=== PATIENT | female | born 1995 | race Caucasian/White ===

== ENCOUNTER 2018-04-25 21:29 | Inpatient (IN) ==
[2018-04-25] MEDS ORDERED: 0.9 % Sodium Chloride 1,000 ML IVC ONE (22:34)
[2018-04-25] MEDS ORDERED: Ondansetron 4 MG/2 ML VIAL IVP ONE (22:34)
[2018-04-25 23:04] LABS: Basophils % 0.4 %; Eosinophils # 0.2 K/mcL (0.0-0.6); Eosinophils % 1.9 %; Hemoglobin 12.5 g/dL (11.5-15.4); Lymphocytes % 9.5 %; Mean Corpuscular HGB Conc 32.1 g/dL (31.6-35.5); Mean Corpuscular Hemoglobin 26.5 pg (28.0-33.3); Mean Corpuscular Volume 82.8 fL (83.0-100.0); Mean Platelet Volume 9.8 fL (9.4-12.4); Monocytes # 1.1 K/mcL (0.0-1.3); Monocytes % 10.6 %; Neutrophils # 8.2 K/mcL (1.6-8.9); Platelet Count 456 K/mcL (140-400); Red Blood Count 4.71 M/mcL (3.82-4.97); Red Cell Distribution Width 17.7 % (11.5-14.5); Segmented Neutrophils % 76.6 %
[2018-04-25 23:22] LABS: BUN/Creatinine Ratio 6 (6-26); Blood Urea Nitrogen 4 mg/dL (6-20); Calcium 8.3 mg/dL (8.6-10.3); Carbon Dioxide 28 mEq/L (23-29); Chloride 98 mEq/L (98-107); Glucose 169 mg/dL (70-105); Osmolality,Calculated 285 (280-300); Potassium 2.9 mEq/L (3.5-5.1); Sodium 137 mEq/L (136-145); eGFR For Non-African Americans > 60 (> 60)
[2018-04-25] MEDS ORDERED: Potassium Chloride Elixir 20 MEQ/15 ML UDC PO ONE (23:32)
[2018-04-26 00:04] LABS: Bilirubin,Urine Small (Negative); Blood,Urine Moderate (Negative); Clarity,Urine Cloudy (Clear); Color,Urine Dark Yellow (Yellow); Glucose,Urine (UA) Normal (Normal); Ketones,Urine 80 mg/dL (Negative); Leukocyte Esterase,Urine Small (Negative); Nitrite,Urine Negative (Negative); Protein,Urine 100 mg/dL (Neg-Trace); Specific Gravity,Urine 1.015 (1.010-1.025); Urobilinogen,Urine Normal (Normal)
[2018-04-26 00:27] LABS: Bacteria,Urine Few per hpf (None-Few); Squamous Epithelial Cell,Urine Many per lpf (None-Few)
[2018-04-26] MEDS ORDERED: 0.9 % Sodium Chloride 1,000 ML IVC ONE (00:34)
[2018-04-26] MEDS ORDERED: Metoclopramide 10 MG/2 ML VIAL IVP ONE (00:46)
--- NOTE | 2018-04-26 00:59 | Emergency Department Note ---
Disposition Clinical Impression: New onset type 2 diabetes mellitus Nausea and vomiting Qualifiers: Vomiting type: unspecified Vomiting Intractability: intractable Qualified Code(s): R11.2 - Nausea with vomiting, unspecified Disposition: Admitted As Inpatient Condition: Fair Time of Disposition: 00:56 General Adult HPI - General Chief complaint: ED Nausea/Vomiting/Diarrhea Stated complaint: vomiting/diabetic issues Time Seen by Provider: 04/25/18 22:05 Source: patient, family Mode of arrival: ambulatory Limitations: no limitations Nursing Notes Reviewed: Yes Vital Signs Reviewed: Yes - History of Present Illness HPI Narrative: Patient is a 23-year-old female past medical history of prediabetes and hypertension presents immersed department for intractable nausea and vomiting has been going on for the past 4 weeks. The patient states that she has been 2 [facility] ED multiple times without any answers or care for her nausea and vomiting. She states that she saw family doctor for the first time today in which she had labs drawn they called her dad's girlfriend and told her that she needs to come to the hospital due to her labs. I spoke with dad's girlfriend, back, and she states that the patient needed to come in due to her A1c in her intractable nausea and vomiting. She denies any abdominal pain at this time states that occasionally before vomiting she gets like an epigastric pain that occurs before and after. No fevers. States that she has not been able to fe erate any food by mouth for the past 4 weeks. Pain Scale: 9 - Related Data Allergies Allergy/AdvReac Type Severity Reaction Status Date / Time No Known Allergies Allergy Verified 04/25/18 22:02 All systems ED: reviewed and negative except as stated. Review of Systems: As Per HPI Constitutional: Denies: fever, chills Cardiovascular: Denies: chest pain, palpitations, dyspnea on exertion Respiratory: Denies: cough, dyspnea, wheezes Gastrointestinal: Reports: abdominal pain, nausea, vomiting, diarrhea Genitourinary: Denies: urgency, dysuria, frequency Musculoskeletal: Denies: back pain, neck pain Integumentary: Denies: rash Past Medical History - Past Medical History Attestation: Yes The following information was validated with the patient. Medical history: Reports: diabetes, hypertension Psychiatric history: Reports: no psych history - Social History Smoking Status: Never smoker Smokeless Tobacco Status: No Alcohol use: Reports: none Drug use: Reports: none Physical Exam - General Limitations: no limitations General appearance: alert, in no apparent distress - Head Head exam: atraumatic, normocephalic, normal inspection - Eye Eye exam: Present: normal appearance, PERRL, EOMI - ENT ENT exam: normal exam, normal oropharynx, mucous membranes dry - Neck Neck exam: Present: normal inspection, full ROM, trachea midline - Respiratory Respiratory exam: Present: normal lung sounds bilaterally. Absent: respiratory distress - Cardiovascular Cardiovascular exam: Present: regular rate, normal rhythm, normal heart sounds - Abdominal Exam Abdominal exam: Present: soft, Non-Tender. Absent: tenderness, distention, guarding, rebound, rigidity - Extremities Exam Extremities exam: Present: normal inspection, full ROM. Absent: tenderness, pedal edema - Back Exam Back exam: Present: normal inspection, full ROM. Absent: tenderness - Neurological Exam Neurological exam: Present: alert, oriented X3 - Psychiatric Psychiatric exam: Present: normal affect, normal mood - Skin Skin exam: Present: warm, dry, intact, normal color Course Course Narrative: Patient will undergo evaluation for dehydration we will also evaluate a chem panel to check electrolytes and glucose. Upon review of her labs earlier today she does have microcytic blood cells, hypokalemia, hypocalcemia and hypoalbuminemia. These are concerning for possible it malnutrition secondary to intractable nausea and vomiting. She also has medications with her which include Phenergan, [place], Flagyl and Lasix. She will receive IV fluid hydration as well as treatment of Zofran. She also complains of dizziness associates this with her first dose of Phenergan. She will receive meclizine. We will then reassess. She is tachycardic in the 120s which I suspect is due to dehydration given her dry mucous membranes. - Reevaluation(s) Reevaluation #1: Patient's lab work is unchanged from labwork done this morning except for potassium is lower. There is confusion between her and her mother as to whether she took her potassium pills this morning so I am concern for noncompliance with medications. Her urine shows signs of dehydration and is very dark in appearance and she does have ketones present but no infection. We will replace her potassium she will receive a second liter of IV fluids. She failed a by mouth challenge after Zofran. She received metoclopramide we will get the patient to the hospital for intractable nausea and vomiting. I discussed the patient's case with Dr. Coleman and he agrees to accept. Time: 01:02 Vital Signs Temperature 98.1 F 04/25/18 21:59 Pulse Rate 125 04/25/18 21:59 Respiratory Rate 16 04/25/18 21:59 Blood Pressure 136/95 04/25/18 21:59 O2 Sat by Pulse Oximetry 96 04/25/18 21:59 Temperature 98.1 F 04/25/18 21:59 Pulse Rate 109 04/26/18 00:30 Respiratory Rate 18 04/26/18 00:30 Blood Pressure 158/84 04/26/18 00:30 O2 Sat by Pulse Oximetry 100 04/26/18 00:30 Oxygen Delivery Oxygen Delivery Room Air Medical Decision Making - Medical Records Medical records reviewed: Yes I reviewed the patient's medical records. - Lab Data Lab results reviewed: Yes I reviewed the patient's lab results. Result diagrams: 04/25/18 22:22 04/25/18 22:22 Lab Results 04/25/18 04/25/18 04/25/18 Range/Units 22:22 22:22 23:48 WBC 10.7 (4.3-11.1) K/mcL RBC 4.71 (3.82-4.97) M/mcL Hgb 12.5 (11.5-15.4) g/dL Hct 39.0 (35.3-44.9) % MCV 82.8 L (83.0-100.0) fL MCH 26.5 L (28.0-33.3) pg MCHC 32.1 (31.6-35.5) g/dL RDW 17.7 H (11.5-14.5) % Plt Count 456 H (140-400) K/mcL MPV 9.8 (9.4-12.4) fL Immature Gran % 1.0 (0-4) % Seg Neutrophils % 76.6 % Lymphocytes % 9.5 % Monocytes % 10.6 % Eosinophils % 1.9 % Basophils % 0.4 % Neutrophils # 8.2 (1.6-8.9) K/mcL Lymphocytes # 1.0 (0.6-4.6) K/mcL Monocytes # 1.1 (0.0-1.3) K/mcL Eosinophils # 0.2 (0.0-0.6) K/mcL Basophils # 0.0 (0.0-0.2) K/mcL Sodium 137 (136-145) mEq/L Potassium 2.9 L (3.5-5.1) mEq/L Chloride 98 (98-107) mEq/L Carbon Dioxide 28 (23-29) mEq/L BUN 4 L (6-20) mg/dL Creatinine 0.71 (0.60-1.20) mg/dL Est GFR ( Amer) > 60 (> 60) Est GFR (Non-Af Amer) > 60 (> 60) BUN/Creatinine Ratio 6 (6-26) Glucose 169 H (70-105) mg/dL Calculated Osmolality 285 (280-300) Calcium 8.3 L (8.6-10.3) mg/dL Urine Color Dark Yellow (Yellow) Urine Clarity Cloudy A (Clear) Urine pH 6.0 (5.0-8.0) pH Units Ur Specific [place] 1.015 (1.010-1.025) Urine Protein 100 H (Neg-Trace) mg/dL Urine Glucose (UA) Normal (Normal) mg/dL Urine Ketones 80 H (Negative) mg/dL Urine Blood Moderate H (Negative) Urine Nitrite Negative (Negative) Urine Bilirubin Small H (Negative) Urine Urobilinogen Normal (Normal) mg/dL Ur Leukocyte Esterase Small H (Negative) Urine Microscopic RBC 3-5 H (0-3) per hpf Urine Microscopic WBC 5-15 H (0-3) per hpf Ur Squamous Epith Cells Many H (None-Few) per lpf Urine Bacteria Few (None-Few) per hpf Ur Culture Indicated? NO. A (NO)
[2018-04-26] MEDS ORDERED: Potassium Chloride 40 MEQ, Lidocaine 1% 2 ML in D5% in Water 500 ML IVPB ONE (01:02)
[2018-04-26] MEDS ORDERED: *HR* Promethazine 25 MG/ML VIAL IVP PRN (01:26)
[2018-04-26] MEDS ORDERED: 0.9 % Sodium Chloride w KCl 40 MEQ/1,000 ML MLS IVC SCH (01:30)
--- NOTE | 2018-04-26 01:57 | Emergency Department Note ---
Disposition Clinical Impression: New onset type 2 diabetes mellitus Nausea and vomiting Qualifiers: Vomiting type: unspecified Vomiting Intractability: intractable Qualified Code(s): R11.2 - Nausea with vomiting, unspecified Disposition: Admitted As Inpatient Condition: Fair General Adult HPI - General Chief complaint: ED Nausea/Vomiting/Diarrhea Stated complaint: vomiting/diabetic issues Time Seen by Provider: 04/25/18 22:05 Source: patient, family Mode of arrival: ambulatory Limitations: no limitations Nursing Notes Reviewed: Yes Vital Signs Reviewed: Yes - History of Present Illness Pain Scale: 9 - Related Data Allergies Allergy/AdvReac Type Severity Reaction Status Date / Time No Known Allergies Allergy Verified 04/25/18 22:02 Constitutional: Denies: fever, chills Cardiovascular: Denies: chest pain, palpitations, dyspnea on exertion Respiratory: Denies: cough, dyspnea, wheezes Gastrointestinal: Reports: abdominal pain, nausea, vomiting, diarrhea Genitourinary: Denies: urgency, dysuria, frequency Musculoskeletal: Denies: back pain, neck pain Integumentary: Denies: rash Past Medical History - Past Medical History Medical history: Reports: diabetes, hypertension Psychiatric history: Reports: no psych history - Social History Smoking Status: Never smoker Smokeless Tobacco Status: No Alcohol use: Reports: none Drug use: Reports: none Physical Exam - General Limitations: no limitations General appearance: alert, in no apparent distress Course Vital Signs Temperature 98.1 F 04/25/18 21:59 Pulse Rate 125 04/25/18 21:59 Respiratory Rate 16 04/25/18 21:59 Blood Pressure 136/95 04/25/18 21:59 O2 Sat by Pulse Oximetry 96 04/25/18 21:59 Temperature 98.1 F 04/25/18 21:59 Pulse Rate 109 04/26/18 00:30 Respiratory Rate 18 04/26/18 00:30 Blood Pressure 158/84 04/26/18 00:30 O2 Sat by Pulse Oximetry 100 04/26/18 00:30 Oxygen Delivery Oxygen Delivery Room Air Medical Decision Making - Medical Records Medical records reviewed: Yes I reviewed the patient's medical records. - Lab Data Lab results reviewed: Yes I reviewed the patient's lab results. Result diagrams: 04/25/18 22:22 04/25/18 22:22 Lab Results 04/25/18 04/25/18 04/25/18 Range/Units 22:22 22:22 23:48 WBC 10.7 (4.3-11.1) K/mcL RBC 4.71 (3.82-4.97) M/mcL Hgb 12.5 (11.5-15.4) g/dL Hct 39.0 (35.3-44.9) % MCV 82.8 L (83.0-100.0) fL MCH 26.5 L (28.0-33.3) pg MCHC 32.1 (31.6-35.5) g/dL RDW 17.7 H (11.5-14.5) % Plt Count 456 H (140-400) K/mcL MPV 9.8 (9.4-12.4) fL Immature Gran % 1.0 (0-4) % Seg Neutrophils % 76.6 % Lymphocytes % 9.5 % Monocytes % 10.6 % Eosinophils % 1.9 % Basophils % 0.4 % Neutrophils # 8.2 (1.6-8.9) K/mcL Lymphocytes # 1.0 (0.6-4.6) K/mcL Monocytes # 1.1 (0.0-1.3) K/mcL Eosinophils # 0.2 (0.0-0.6) K/mcL Basophils # 0.0 (0.0-0.2) K/mcL Sodium 137 (136-145) mEq/L Potassium 2.9 L (3.5-5.1) mEq/L Chloride 98 (98-107) mEq/L Carbon Dioxide 28 (23-29) mEq/L BUN 4 L (6-20) mg/dL Creatinine 0.71 (0.60-1.20) mg/dL Est GFR ( Amer) > 60 (> 60) Est GFR (Non-Af Amer) > 60 (> 60) BUN/Creatinine Ratio 6 (6-26) Glucose 169 H (70-105) mg/dL Calculated Osmolality 285 (280-300) Calcium 8.3 L (8.6-10.3) mg/dL Urine Color Dark Yellow (Yellow) Urine Clarity Cloudy A (Clear) Urine pH 6.0 (5.0-8.0) pH Units Ur Specific [place] 1.015 (1.010-1.025) Urine Protein 100 H (Neg-Trace) mg/dL Urine Glucose (UA) Normal (Normal) mg/dL Urine Ketones 80 H (Negative) mg/dL Urine Blood Moderate H (Negative) Urine Nitrite Negative (Negative) Urine Bilirubin Small H (Negative) Urine Urobilinogen Normal (Normal) mg/dL Ur Leukocyte Esterase Small H (Negative) Urine Microscopic RBC 3-5 H (0-3) per hpf Urine Microscopic WBC 5-15 H (0-3) per hpf Ur Squamous Epith Cells Many H (None-Few) per lpf Urine Bacteria Few (None-Few) per hpf Ur Culture Indicated? NO. A (NO) Attestation Statement - Attestation Attestation: I, Gregor Johnson MD, personally evaluated this patient and discussed their management with the resident physician. I reviewed the resident's note and agree with the documented findings, medical decision making, and plan of care. 23-year-old female persisted emergency department with a complaint of nausea and vomiting for about a month prior to arrival. She states every time she eats anything she gets sick and vomits and cannot keep anything down. Symptoms have gotten progressively worse. She has apparently been seen at another facility multiple times for this. Some intermittent abdominal pain which seems to vary in location. No fever. No GI bleed symptoms. Patient has been told that she was prediabetic. She was seen earlier today by a primary care nurse practitioner. She had lab work and then was called at home this evening and advised she needed to come to the emergency department to be admitted to the hospital for diabetes. On examination patient is a well-developed obese young female in no acute distress. She is alert and oriented 3. No cyanosis or diaphoresis. Mucous membranes are slightly dry. Neck is supple with no lymphadenopathy. Breath sounds clear and equal bilaterally. Heart regular with a mild tachycardia. Abdomen is soft with normal bowel sounds. Mild mid abdominal tenderness with no guarding or rebound tenderness. Labs reviewed. Patient was given a dose of oral potassium for her hypokalemia but then vomited it back up. She also was given an oral challenge and vomited. The hospitalist, Dr. Schultz, was consulted and accepted admission of the patient.
--- NOTE | 2018-04-26 02:17 | Internal Med History&Physical ---
Date of Encounter: 04/26/18 Time of Encounter: 02:14 Internal Medicine - H&P: HPI Chief complaint: vomiting Admitted From: Home Plans for Post Hospital Care: Home History of present illness: Lauren Motta is a 23 year old obese female who has been diagnosed with high blood pressure and seemingly recently was told she may have diabetes who is brought in by a female bacon de rinder with the complaint of 1 month of nausea, vomiting and watery diarrhea. She has been to [place] ER on 2 occasions because of this issue. She comes in now because she has significantly worsened, has been unable to tolerate PO, has some abdominal pain but no fever or chills. Labs revealed a serum K of 2.9. She is admitted for observation and treatment. Past Med Surg Social Fam HX - Past Medical History Medical history: diabetes, hypertension Psychiatric history: no psych history - Social History Smoking Status: Never smoker Smokeless Tobacco Status: No Alcohol use: none Drug use: none Internal Medicine - H&P: Meds Allergy/AdvReac Type Severity Reaction Status Date / Time No Known Allergies Allergy Verified 04/25/18 22:02 All Systems PM: A 10-system review of systems was performed and is negative for pertinent findings except as documented above in the HPI. Family history reviewed and found non-contributory. - Constitutional Vitals: Temp Pulse Resp BP Pulse Ox 98.1 F 109 18 158/84 100 04/25/18 21:59 04/26/18 00:30 04/26/18 00:30 04/26/18 00:30 04/26/18 00:30 Exam: Vitals: Reviewed General: Obese white female lying in bed, notably fatigued. Skin: Warm and supple. HEENT: Moist mucous membranes. No conjunctivae pallor. Neck: No lymphadenopathy. No JVD. No carotid bruits. No palpable thyroid. Chest: Normal thoracic expansion. Normal breath sounds. Clear to auscultation. Heart: Normal S1 & S2; rhythmic. No rubs or murmurs. Abdomen: Non-distended, soft and mild tenderness to palpation in the right flank. No peritoneal reaction. Extremities: No clubbing, cyanosis or edema. No calf tenderness. Normal distal pulses. Neurological: Awake, alert and oriented to person, place and time. No focal defi cits. Psych: Affect appropriate. Internal Med - H&P Results - Labs CBC & Chem 7: 01/30/19 22:22 04/25/18 22:22 Labs: Short CBC 04/25/18 Range/Units 22:22 WBC 10.7 (4.3-11.1) K/mcL Hgb 12.5 (11.5-15.4) g/dL Hct 39.0 (35.3-44.9) % Plt Count 456 H (140-400) K/mcL Neutrophils # 8.2 (1.6-8.9) K/mcL BMP 04/25/18 22:22 Sodium 137 Potassium 2.9 L Chloride 98 Carbon Dioxide 28 BUN 4 L Creatinine 0.71 Glucose 169 H Calcium 8.3 L Urine 04/25/18 Range/Units 23:48 Urine Color Dark Yellow (Yellow) Urine Clarity Cloudy A (Clear) Urine pH 6.0 (5.0-8.0) pH Units Ur Specific [place] 1.015 (1.010-1.025) Urine Protein 100 H (Neg-Trace) mg/dL Urine Glucose (UA) Normal (Normal) mg/dL - Assessment and plan (1) Nausea and vomiting Current Visit: Yes Status: Acute Assessment and plan: Unclear etiology. It is a persistent issue based on timeline and has led to her current hypokalemic state. The fact that she has associated diarrhea gives concern for an infectious process that may be at play and given its persistence, will send a GI panel for evaluation. In the interim, will provide symptomatic relief measures and fluid resuscitation. Clear liquid diet for now and advance as tolerated. If symptoms continue or worsen overnight, will get a CT scan for more evaluation. Qualifiers: Vomiting type: unspecified Vomiting Intractability: intractable Qualified Code(s): R11.2 - Nausea with vomiting, unspecified (2) Essential hypertension Current Visit: Yes Status: Acute Assessment and plan: Does not appear to be on any medications at the moment. Will monitor BP trend. Will require f/u and monitoring by PCP. (3) Obesity Current Visit: Yes Status: Acute Assessment and plan: She will benefit from weight loss. Therapeutic lifestyle changes education was given. Will check a TSH, lipid panel and A1C for associated comorbidities. Qualifiers: Obesity type: due to excess calories Obesity classification: adult class 3 (BMI >= 40) Serious obesity comorbidity presence: with serious comorbidity Body mass index: BMI 45.0-49.9 Qualified Code(s): E66.01 - Morbid (severe) obesity due to excess calories; Z68.42 - Body mass index (BMI) 45.0-49.9, adult (4) New onset type 2 diabetes mellitus Current Visit: Yes Status: Acute Assessment and plan: Will check a fasting A1C in the morning. If confirmed, she will need to f/u with PCP for initiation and follow up of therapy. Diabetic nurse education will also need to be provided. (5) DVT prophylaxis Current Visit: Yes Status: Acute Assessment and plan: SubQ heparin. - Time Spent With Patient Total time spent is greater than 50% in coordination of care (as documented) at patient's floor/unit and/or counseling patient: Greater than 35 minutes
[2018-04-26] MEDS: *HR* Heparin 5,000 UNIT/ML VIAL SQ SCH ×2 (05:31→18:08)
[2018-04-26 06:18] LABS: Alanine Aminotransferase 9 Units/L (7-52); Albumin 2.3 g/dL (3.5-5.7); Albumin/Globulin Ratio 0.6 (1.1-2.2); Alkaline Phosphatase 61 Units/L (34-104); Aspartate Amino Transferase 11 Units/L (13-39); BUN/Creatinine Ratio 6 (6-26); Bilirubin,Direct 0.1 mg/dL (0.0-0.2); Bilirubin,Indirect 0.2 mg/dL (0.0-1.2); Bilirubin,Total 0.3 mg/dL (0.3-1.0); Blood Urea Nitrogen 4 mg/dL (6-20); Calcium 7.7 mg/dL (8.6-10.3); Carbon Dioxide 24 mEq/L (23-29); Chloride 104 mEq/L (98-107); Chol/HDL Ratio 2.8 (0-4.9); Cholesterol 44 mg/dL (< 200); Globulin 3.7 g/dL (2.4-3.5); Glucose 167 mg/dL (70-105); HDL Cholesterol 16 mg/dL (40-59); LDL Cholesterol,Calculated 17 mg/dL (0-99); Osmolality,Calculated 287 (280-300); Potassium 3.4 mEq/L (3.5-5.1); Sodium 138 mEq/L (136-145); Triglycerides 57 mg/dL (< 150); eGFR For Non-African Americans > 60 (> 60)
[2018-04-26 06:38] LABS: Thyroid Stimulating Hormone 1.319 mcIU/mL (0.340-5.600)
[2018-04-26] MEDS: Pantoprazole 40 MG VIAL IVP SCH (08:18)
[2018-04-26] MEDS: 0.9 % Sodium Chloride w KCl 40 MEQ/1,000 ML MLS IVC SCH ×2 (08:19→18:05)
[2018-04-26 08:45] LABS: Estimated Average Glucose 214 mg/dl; Hemoglobin A1C 9.1 %
[2018-04-26 11:33] LABS: Adenovirus F 40/41 PCR Not detected (Not detect); Astrovirus PCR Not detected (Not detect); C.difficile Toxin A/B Gene PCR Not detected (Not detect); Campylobacter by PCR Not detected (Not detect); Cryptosporidium by PCR Not detected (Not detect); Cyclospora cayetanensis PCR Not detected (Not detect); E. coli O157 by PCR Not detected (Not detect); Entamoeba histolytica PCR Not detected (Not detect); Enteroaggregative E.coli(EAEC) DETECTED (Not detect); Enteropathogenic E.coli(EPEC) Not detected (Not detect); Enterotoxigenic E.coli (ETEC) Not detected (Not detect); Giardia lamblia PCR Not detected (Not detect); Norovirus GI/GII PCR Not detected (Not detect); Plesiomonas shigelloides PCR Not detected (Not detect); Rotavirus A PCR Not detected (Not detect); Salmonella PCR Not detected (Not detect); Sapovirus PCR Not detected (Not detect); Shig/EnteroinvasiveE coli EIEC Not detected (Not detect); Shigalike tox-prod E coli STEC Not detected (Not detect); Vibrio PCR Not detected (Not detect); Vibrio cholerae PCR Not detected (Not detect); Yersinia enterocolitica PCR Not detected (Not detect)
--- NOTE | 2018-04-26 11:37 | Event Note ---
Date of Encounter: 04/26/18 Time of Encounter: 11:37 Patient was seen and examined earlier this morning by Hospital services. Currently patient complains of right upper quadrant pain she does have some tenderness on palpation. Continues to experience diarrhea no nausea or vomiting at this time. We will order a full liquid diet attempt to obtain previous medical records. Discussed treatment plan with the patient who verbalized understanding.
[2018-04-26] MEDS: Ondansetron 4 MG/2 ML VIAL IVP PRN (18:05)
--- NOTE | 2018-04-27 02:14 | Event Note ---
Date of Encounter: 04/27/18 Time of Encounter: 01:30 Alerted by pts. nurse EZEQUIEL Rowland that the pt. was reporting pain in her vaginal area. Previously, pt. was experiencing pain in the RUQ. Pt. denies buring, itching, painful urination, urinary urgency, or urinary hesitancy. Denies suprapubic pain. States she had similar pain in 2017 when she had a yeast infection. No discharge. U/A not indicative for culture so suspicion for UTI is low. Pt. is positive for EAEC in stool. Will wait on treatment of Diflucan and begin Culturelle to see if symptoms improve. Nurse instructed to continue monitoring pt. and notify me immediately of any adverse changes.
[2018-04-27] MEDS: Lactobacillus 1 EACH CAP.SPRINK PO SCH ×2 (02:35→09:27)
[2018-04-27] MEDS: *HR* Heparin 5,000 UNIT/ML VIAL SQ SCH ×2 (05:49→18:10)
[2018-04-27] MEDS: Ondansetron 4 MG/2 ML VIAL IVP PRN (09:26)
[2018-04-27] MEDS: Pantoprazole 40 MG VIAL IVP SCH (09:26)
[2018-04-27 09:45] LABS: Basophils # 0.1 K/mcL (0.0-0.2); Basophils % 0.9 %; Eosinophils # 0.5 K/mcL (0.0-0.6); Eosinophils % 6.9 %; Hematocrit 36.8 % (35.3-44.9); Hemoglobin 11.8 g/dL (11.5-15.4); Immature Granulocytes % 1.5 % (0-4); Lymphocytes # 1.7 K/mcL (0.6-4.6); Mean Corpuscular HGB Conc 32.1 g/dL (31.6-35.5); Mean Corpuscular Hemoglobin 26.8 pg (28.0-33.3); Mean Corpuscular Volume 83.4 fL (83.0-100.0); Mean Platelet Volume 9.9 fL (9.4-12.4); Monocytes % 13.4 %; Neutrophils # 4.3 K/mcL (1.6-8.9); Platelet Count 428 K/mcL (140-400); Red Blood Count 4.41 M/mcL (3.82-4.97); Red Cell Distribution Width 18.9 % (11.5-14.5); Segmented Neutrophils % 55.3 %
[2018-04-27 09:59] LABS: BUN/Creatinine Ratio 5 (6-26); Blood Urea Nitrogen 3 mg/dL (6-20); Calcium 8.3 mg/dL (8.6-10.3); Carbon Dioxide 25 mEq/L (23-29); Chloride 105 mEq/L (98-107); Glucose 121 mg/dL (70-105); Osmolality,Calculated 282 (280-300); Potassium 3.4 mEq/L (3.5-5.1); Sodium 137 mEq/L (136-145); eGFR For Non-African Americans > 60 (> 60)
--- NOTE | 2018-04-27 13:37 | Internal Med Progress Note ---
Hospitalist Progress Note - Encounter Date of Encounter: 04/27/18 Time of Encounter: 11:00 - Subjective Interval History: Patient was seen and examined at bedside. Currently patient denies any abdominal pain has been tolerating a full liquid diet. Patient's caregiver is at the bedside-we did discuss treatment plan. Patient has been complaining of pain and panis area as well as sanket/pubic area-she does have excoriated skin to abdominal folds as well as sanket area extending into anal area. She does have P size lesion that is open and draining clear fluid on her pubic area. Caregiver states that patient has been like this once before and required hospitalization and IV antibiotics. - Exam Vitals: Temp Pulse Resp BP Pulse Ox 98.2 F 99 17 144/88 92 04/27/18 11:28 04/27/18 11:28 04/27/18 11:28 04/27/18 11:28 04/27/18 11:28 Exam: Vitals: Reviewed General: Obese white female lying in bed, notably fatigued. Skin: Warm and supple.-Open small lesions approximate pea-sized on pubic area right abdomen and under right axilla area. Excoriated skin covering skinfolds as well as pubic and groin area extending into the rectal area HEENT: Moist mucous membranes. No conjunctivae pallor. Neck: No lymphadenopathy. No JVD. No carotid bruits. No palpable thyroid. Chest: Normal thoracic expansion. Normal breath sounds. Clear to auscultation. Heart: Normal S1 & S2; rhythmic. No rubs or murmurs. Abdomen: Non-distended, soft and mild tenderness to palpation in the right flank. No peritoneal reaction. Extremities: No clubbing, cyanosis or edema. No calf tenderness. Normal distal pulses. Neurological: Awake, alert and oriented to person, place and time. No focal deficits. Psych: Affect appropriate. - Assessment and Plan (1) Nausea and vomiting Current Visit: Yes Status: Acute Assessment and Plan: Unclear etiology. It is a persistent issue based on timeline and has led to her current hypokalemic state. The fact that she has associated diarrhea gives concern for an infectious process that may be at play and given its persistence, will send a GI panel for evaluation. In the interim, will provide symptomatic relief measures and fluid resuscitation. Clear liquid diet for now and advance as tolerated. If symptoms continue or worsen overnight, will get a CT scan for more evaluation. 2/1 This has been improving patient is tolerating full liquid diet GI panel does show- Enteroaggregative E. Coli I did receive CT results from [facility] which does show diffuse colonic wall thickening mild pericolonic inflammation particularly along the descending and sigmoid colon. A number of small reactive mesenteric lymph nodes are present findings suggest diffuse colitis. No further acute processes identified at the abdomen or pelvis. There is noted profound of diffuse hepatic steatosis and secondary hepatomegaly. There appeared to be several exophytic cyst the left ovary. The largest measures up to 6 cm. There is no associated free fluid. According to records appears patient was given IV Flagyl and then discharged home with Phenergan advised to take Benadryl advised to follow-up with GI. We will continue with Flagyl for now We will repeat CT of abdomen and pelvis if no improvement. (2) New onset type 2 diabetes mellitus Current Visit: Yes Status: Acute Assessment and Plan: Will check a fasting A1C in the morning. If confirmed, she will need to f/u with PCP for initiation and follow up of therapy. Diabetic nurse education will also need to be provided. 2/1 Patient will require diabetic education prior to discharge and will require close follow-up. Discussed with social and political studies professor patient will need home health as well. We will place on sliding scale insulin and Accu-Cheks before meals at bedtime A1c is 9.1 (3) Essential hypertension Current Visit: Yes Status: Acute Assessment and Plan: Does not appear to be on any medications at the moment. Will monitor BP trend. Will require f/u and monitoring by PCP. 2/1 Currently appears to be controlled continue with home medications (4) Obesity Current Visit: Yes Status: Acute Assessment and Plan: She will benefit from weight loss. Therapeutic lifestyle changes education was given. Will check a TSH, lipid panel and A1C for associated comorbidities. 2/1 Encourage weight loss and lifestyle changes (5) DVT prophylaxis Current Visit: Yes Status: Acute Assessment and Plan: SubQ heparin. (6) Diarrhea Current Visit: Yes Status: Acute Assessment and Plan: 1 patient has been experiencing diarrhea for approximately a month CT of abdomen and pelvis obtained outlying facility on 04/24- show diffuse colonic wall thickening mild pericolonic inflammation particularly along the descending and sigmoid colon. A number of small reactive mesenteric lymph nodes are present findings suggest diffuse colitis. No further acute processes identified at the abdomen or pelvis. There is noted profound of diffuse hepatic steatosis and secondary hepatomegaly. There appeared to be several exophytic cyst the left ovary. The largest measures up to 6 cm. There is no associated free fluid. She was given IV Flagyl and discharged home. Will resume Flagyl this time if no improvement we will repeat CT of abdomen and pelvis GI panel positive- enteroaggregative E coli (7) Skin abnormalities Current Visit: Yes Status: Acute Assessment and Plan: 1 she has redness and excoriation to skin folds and an pubic and rectal area- appears to be fungal -advised nursing to keep areas clean and dry-no skin to skin contact Nystatin powder Patient also has small lesions some are open and weeping-we will obtain wound cultures-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 we will initiate on vancomycin and cefepime Patient has poor hygiene-caregiver reports that patient attempts to take care of herself however have some difficulty-appears she has some cognitive delay social and political studies professor has been consulted for home health services - Time Spent with Patient Total time spent is greater than 50% in coordination of care (as documented) at patient's floor/unit and/or counseling patient: Internal Medicine: Result - Labs CBC & Chem 7: 04/27/18 09:23 04/27/18 09:23 Labs: Short CBC 04/27/18 Range/Units 09:23 WBC 7.8 (4.3-11.1) K/mcL Hgb 11.8 (11.5-15.4) g/dL Hct 36.8 (35.3-44.9) % Plt Count 428 H (140-400) K/mcL Neutrophils # 4.3 (1.6-8.9) K/mcL BMP 04/27/18 09:23 Sodium 137 Potassium 3.4 L Chloride 105 Carbon Dioxide 25 BUN 3 L Creatinine 0.63 Glucose 121 H Calcium 8.3 L Consult Discharge Plan - Plan Additional Instructions: [facility] has been set up and will call you within 48 hours after D/C to set up an admission date and time. If you need to contact them please call #[phone] or #[phone]. Referrals: Luna Lomax, COIN WRAPPING MACHINE OPERATOR [Advanced Practice Nurse] - 05/01/18 2:30 pm (1) Nausea and vomiting Qualifiers: Vomiting type: unspecified Vomiting Intractability: intractable Qualified Code(s): R11.2 - Nausea with vomiting, unspecified (4) Obesity Qualifiers: Obesity type: due to excess calories Obesity classification: adult class 3 (BMI >= 40) Serious obesity comorbidity presence: with serious comorbidity Body mass index: BMI 45.0-49.9 Qualified Code(s): E66.01 - Morbid (severe) obesity due to excess calories; Z68.42 - Body mass index (BMI) 45.0-49.9, adult (6) Diarrhea Qualifiers: Diarrhea type: unspecified type Qualified Code(s): R19.7 - Diarrhea, unsp ecified
[2018-04-27] MEDS ORDERED: Fluconazole 200 MG/100 ML 200 MG/100 ML BAG IVPB SCH (14:00)
[2018-04-27] MEDS: Nystatin POWDER 30 GM BOTTLE TP SCH ×2 (15:56→21:07)
[2018-04-27] MEDS ORDERED: MetroNIDAZOLE 500 MG/100 ML 500 MG/100 ML BAG IVPB SCH (16:00)
[2018-04-27] MEDS: Cefepime HCl 2,000 MG in Water for inj. (sterile) 20 ML 20 ML IVP SCH (18:10)
[2018-04-28] MEDS: MetroNIDAZOLE 500 MG/100 ML 500 MG/100 ML BAG IVPB SCH ×3 (03:36→22:07)
[2018-04-28] MEDS: Cefepime HCl 2,000 MG in Water for inj. (sterile) 20 ML 20 ML IVP SCH ×2 (05:51→17:44)
[2018-04-28] MEDS: *HR* Heparin 5,000 UNIT/ML VIAL SQ SCH ×2 (05:58→17:44)
[2018-04-28] MEDS: Lactobacillus 1 EACH CAP.SPRINK PO SCH (09:07)
[2018-04-28] MEDS: Pantoprazole 40 MG VIAL IVP SCH (09:08)
[2018-04-28] MEDS: Nystatin POWDER 30 GM BOTTLE TP SCH ×3 (09:08→22:07)
[2018-04-28 09:40] LABS: Basophils # 0.1 K/mcL (0.0-0.2); Basophils % 0.8 %; Eosinophils # 0.6 K/mcL (0.0-0.6); Eosinophils % 6.1 %; Hematocrit 35.3 % (35.3-44.9); Hemoglobin 11.5 g/dL (11.5-15.4); Immature Granulocytes % 2.5 % (0-4); Lymphocytes % 21.9 %; Mean Corpuscular HGB Conc 32.6 g/dL (31.6-35.5); Mean Corpuscular Hemoglobin 26.7 pg (28.0-33.3); Mean Corpuscular Volume 82.1 fL (83.0-100.0); Monocytes # 0.9 K/mcL (0.0-1.3); Monocytes % 10.5 %; Neutrophils # 5.2 K/mcL (1.6-8.9); Platelet Count 235 K/mcL (140-400); Red Cell Distribution Width 18.6 % (11.5-14.5); Segmented Neutrophils % 58.2 %
[2018-04-28 09:53] LABS: BUN/Creatinine Ratio 7 (6-26); Blood Urea Nitrogen 4 mg/dL (6-20); Calcium 7.9 mg/dL (8.6-10.3); Carbon Dioxide 22 mEq/L (23-29); Chloride 106 mEq/L (98-107); Glucose 130 mg/dL (70-105); Osmolality,Calculated 279 (280-300); Potassium 3.9 mEq/L (3.5-5.1); Sodium 135 mEq/L (136-145); eGFR For Non-African Americans > 60 (> 60)
[2018-04-28] MEDS: Ondansetron 4 MG/2 ML VIAL IVP PRN (16:44)
--- NOTE | 2018-04-28 17:44 | Internal Med Progress Note ---
Hospitalist Progress Note - Encounter Date of Encounter: 04/28/18 Time of Encounter: 11:00 - Subjective Interval History: Patient was seen and examined at bedside. Currently patient denies any abdominal pain has been tolerating a bland diet continues to complain of pain in her perianal area to treatment plan with the patient verbalized understanding - Exam Vitals: Temp Pulse Resp BP Pulse Ox 98.3 F 101 18 139/94 97 04/28/18 15:53 04/28/18 15:53 04/28/18 15:53 04/28/18 15:53 04/28/18 15:53 Exam: Vitals: Reviewed General: Obese white female lying in bed, notably fatigued. Skin: Warm and supple.-Open small lesions approximate pea-sized on pubic area right abdomen and under right axilla area. Excoriated skin covering skinfolds as well as pubic and groin area extending into the rectal area HEENT: Moist mucous membranes. No conjunctivae pallor. Neck: No lymphadenopathy. No JVD. No carotid bruits. No palpable thyroid. Chest: Normal thoracic expansion. Normal breath sounds. Clear to auscultation. Heart: Normal S1 & S2; rhythmic. No rubs or murmurs. Abdomen: Non-distended, soft and mild tenderness to palpation in the right flank. No peritoneal reaction. Extremities: No clubbing, cyanosis or edema. No calf tenderness. Normal distal pulses. Neurological: Awake, alert and oriented to person, place and time. No focal deficits. Psych: Affect appropriate. - Assessment and Plan (1) Nausea and vomiting Current Visit: Yes Status: Acute Assessment and Plan: Unclear etiology. It is a persistent issue based on timeline and has led to her current hypokalemic state. The fact that she has associated diarrhea gives concern for an infectious process that may be at play and given its persistence, will send a GI panel for evaluation. In the interim, will provide symptomatic relief measures and fluid resuscitation. Clear liquid diet for now and advance as tolerated. If symptoms continue or worsen overnight, will get a CT scan for more evaluation. 2/1 This has been improving patient is tolerating full liquid diet GI panel does show- Enteroaggregative E. Coli I did receive CT results from [facility] which does show diffuse colonic wall thickening mild pericolonic inflammation particularly along the descending and sigmoid colon. A number of small reactive mesenteric lymph nodes are presen t findings suggest diffuse colitis. No further acute processes identified at the abdomen or pelvis. There is noted profound of diffuse hepatic steatosis and secondary hepatomegaly. There appeared to be several exophytic cyst the left ovary. The largest measures up to 6 cm. There is no associated free fluid. According to records appears patient was given IV Flagyl and then discharged home with Phenergan advised to take Benadryl advised to follow-up with GI. We will continue with Flagyl for now We will repeat CT of abdomen and pelvis if no improvement. 2/2 Continue with Flagyl Continue with anti-emetics IV fluids as needed however patient is tolerating oral intake at this time Continue bland diet (2) New onset type 2 diabetes mellitus Current Visit: Yes Status: Acute Assessment and Plan: Will check a fasting A1C in the morning. If confirmed, she will need to f/u with PCP for initiation and follow up of therapy. Diabetic nurse education will also need to be provided. 2/1 Patient will require diabetic education prior to discharge and will require close follow-up. Discussed with criminal justice social worker patient will need home health as well. We will place on sliding scale insulin and Accu-Cheks before meals at bedtime A1c is 9.1 2/2 Continue with Accu-Cheks before meals at bedtime with sliding scale insulin (3) Essential hypertension Current Visit: Yes Status: Acute Assessment and Plan: Does not appear to be on any medications at the moment. Will monitor BP trend. Will require f/u and monitoring by PCP. 2/1 Currently appears to be controlled continue with home medications 2/2 Continue with home medications (4) Obesity Current Visit: Yes Status: Acute Assessment and Plan: She will benefit from weight loss. Therapeutic lifestyle changes education was given. Will check a TSH, lipid panel and A1C for associated comorbidities. 2/1 Encourage weight loss and lifestyle changes 2/2 Encourage weight loss and lifestyle changes (5) DVT prophylaxis Current Visit: Yes Status: Acute Assessment and Plan: SubQ heparin. (6) Diarrhea Current Visit: Yes Status: Acute Assessment and Plan: 1 patient has been experiencing diarrhea for approximately a month CT of abdomen and pelvis obtained outlying facility on 04/24- show diffuse colonic wall thickening mild pericolonic inflammation particularly along the descending and sigmoid colon. A number of small reactive mesenteric lymph nodes are present findings suggest diffuse colitis. No further acute processes identified at the abdomen or pelvis. There is noted profound of diffuse hepatic steatosis and secondary hepatomegaly. There appeared to be several exophytic cyst the left ovary. The largest measures up to 6 cm. There is no associated free fluid. She was given IV Flagyl and discharged home. Will resume Flagyl this time if no improvement we will repeat CT of abdomen and pelvis GI panel positive- enteroaggregative E coli 2/2 Golden stable today continue with antibiotics IV fluids as needed and bland diet (7) Skin abnormalities Current Visit: Yes Status: Acute Assessment and Plan: 1 she has redness and excoriation to skin folds and an pubic and rectal area-ap pears to be yeast -advised nursing to keep areas clean and dry-no skin to skin contact Nystatin powder Patient also has small lesions some are open and weeping-we will obtain wound cultures-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 we will initiate on vancomycin and cefepime Patient has poor hygiene-caregiver reports that patient attempts to take care of herself however have some difficulty-appears she has some cognitive delay criminal justice social worker has been consulted for home health services 2/2 Continue with above treatment Encourage patient to keep areas clean and dry No skin to skin contact (8) Colitis Current Visit: Yes Status: Acute Assessment and Plan: CT of abdomen and pelvis obtained outlying facility on 04/24- show diffuse colonic wall thickening mild pericolonic inflammation particularly along the descending and sigmoid colon. A number of small reactive mesenteric lymph nodes are present findings suggest diffuse colitis. No further acute processes identified at the abdomen or pelvis. There is noted profound of diffuse hepatic steatosis and secondary hepatomegaly. There appeared to be several exophytic cyst the left ovary. The largest measures up to 6 cm. There is no associated free fluid. Continue with IV Flagyl Antiemetics - Time Spent with Patient Total time spent is greater than 50% in coordination of care (as documented) at patient's floor/unit and/or counseling patient: Internal Medicine: Result - Labs CBC & Chem 7: 04/28/18 09:27 04/28/18 09:27 Labs: Short CBC 04/28/18 Range/Units 09:27 WBC 9.0 (4.3-11.1) K/mcL Hgb 11.5 (11.5-15.4) g/dL Hct 35.3 (35.3-44.9) % Plt Count 235 (140-400) K/mcL Neutrophils # 5.2 (1.6-8.9) K/mcL BMP 04/28/18 09:27 Sodium 135 L Potassium 3.9 Chloride 106 Carbon Dioxide 22 L BUN 4 L Creatinine 0.60 Glucose 130 H Calcium 7.9 L Consult Discharge Plan - Plan Additional Instructions: [facility] has been set up and will call you within 48 hours after D/C to set up an admission date and time. If you need to contact them please call #[phone] or #[phone]. Referrals: Luna Lomax, INVESTOR [Advanced Practice Nurse] - 05/01/18 2:30 pm (1) Nausea and vomiting Qualifiers: Vomiting type: unspecified Vomiting Intractability: intractable Qualified Code(s): R11.2 - Nausea with vomiting, unspecified (4) Obesity Qualifiers: Obesity type: due to excess calories Obesity classification: adult class 3 (BMI >= 40) Serious obesity comorbidity presence: with serious comorbidity Body mass index: BMI 45.0-49.9 Qualified Code(s): E66.01 - Morbid (severe) obesity due to excess calories; Z68.42 - Body mass index (BMI) 45.0-49.9, adult (6) Diarrhea Qualifiers: Diarrhea type: unspecified type Qualified Code(s): R19.7 - Diarrhea, unspecified
[2018-04-29 04:44] LABS: Basophils # 0.1 K/mcL (0.0-0.2); Basophils % 0.7 %; Eosinophils # 0.4 K/mcL (0.0-0.6); Eosinophils % 4.7 %; Hematocrit 34.1 % (35.3-44.9); Hemoglobin 10.9 g/dL (11.5-15.4); Immature Granulocytes % 1.3 % (0-4); Lymphocytes # 1.3 K/mcL (0.6-4.6); Lymphocytes % 17.7 %; Mean Corpuscular Hemoglobin 26.4 pg (28.0-33.3); Mean Corpuscular Volume 82.6 fL (83.0-100.0); Mean Platelet Volume 9.8 fL (9.4-12.4); Neutrophils # 4.6 K/mcL (1.6-8.9); Platelet Count 425 K/mcL (140-400); Red Blood Count 4.13 M/mcL (3.82-4.97); Red Cell Distribution Width 18.6 % (11.5-14.5); Segmented Neutrophils % 62.6 %
[2018-04-29] MEDS: MetroNIDAZOLE 500 MG/100 ML 500 MG/100 ML BAG IVPB SCH ×3 (04:49→21:34)
[2018-04-29 05:03] LABS: BUN/Creatinine Ratio 7 (6-26); Blood Urea Nitrogen 4 mg/dL (6-20); Carbon Dioxide 26 mEq/L (23-29); Chloride 103 mEq/L (98-107); Glucose 113 mg/dL (70-105); Osmolality,Calculated 282 (280-300); Potassium 3.1 mEq/L (3.5-5.1); Sodium 137 mEq/L (136-145); eGFR For Non-African Americans > 60 (> 60)
[2018-04-29] MEDS: Cefepime HCl 2,000 MG in Water for inj. (sterile) 20 ML 20 ML IVP SCH ×2 (05:56→16:46)
[2018-04-29] MEDS: *HR* Heparin 5,000 UNIT/ML VIAL SQ SCH ×2 (06:03→16:46)
[2018-04-29] MEDS ORDERED: Aminoglycoside Consult 1 EACH MC ONE (07:49)
[2018-04-29] MEDS: Pantoprazole 40 MG VIAL IVP SCH (13:02)
[2018-04-29] MEDS: Lactobacillus 1 EACH CAP.SPRINK PO SCH (13:02)
[2018-04-29] MEDS: Nystatin POWDER 30 GM BOTTLE TP SCH ×3 (13:03→21:34)
--- NOTE | 2018-04-29 15:40 | Internal Med Progress Note ---
Hospitalist Progress Note - Encounter Date of Encounter: 04/29/18 Time of Encounter: 12:00 - Subjective Interval History: Patient was seen and examined at bedside. Currently patient denies any abdominal pain complains of groin pain-attempted breakfast however vomited-we will continue with antibiotics as well as Flagyl. Encouraged patient to Bath and keep area clean and dry - Exam Vitals: Temp Pulse Resp BP Pulse Ox 98.7 F 82 16 147/93 96 04/29/18 11:39 04/29/18 11:39 04/29/18 11:39 04/29/18 11:39 04/29/18 11:39 Exam: Vitals: Reviewed General: Obese white female lying in bed, notably fatigued. Skin: Warm and supple.-Open small lesions approximate pea-sized on pubic area, right abdomen and under right axilla area. Excoriated skin covering skinfolds as well as pubic and groin area extending into the rectal area- HEENT: Moist mucous membranes. No conjunctivae pallor. Neck: No lymphadenopathy. No JVD. No carotid bruits. No palpable thyroid. Chest: Normal thoracic expansion. Normal breath sounds. Clear to auscultation. Heart: Normal S1 & S2; rhythmic. No rubs or murmurs. Abdomen: Non-distended, soft and mild tenderness to palpation in the right flank. No peritoneal reaction. Extremities: No clubbing, cyanosis or edema. No calf tenderness. Normal distal pulses. Neurological: Awake, alert and oriented to person, place and time. No focal deficits. Psych: Affect appropriate. - Assessment and Plan (1) Nausea and vomiting Current Visit: Yes Status: Acute Assessment and Plan: Unclear etiology. It is a persistent issue based on timeline and has led to her current hypokalemic state. The fact that she has associated diarrhea gives concern for an infectious process that may be at play and given its persistence, will send a GI panel for evaluation. In the interim, will provide symptomatic relief measures and fluid resuscitation. Clear liquid diet for now and advance as tolerated. If symptoms continue or worsen overnight, will get a CT scan for more evaluation. / This has been improving patient is tolerating full liquid diet GI panel does show- Enteroaggregative E. Coli I did receive CT results from [facility] which does show diffuse colonic wall thickening mild pericolonic inflammation particularly along the descending and sigmoid colon. A number of small reactive mesenteric lymph nodes are present findings suggest diffuse colitis. No further acute processes identified at the abdomen or pelvis. There is noted profound of diffuse hepatic steatosis and secondary hepatomegaly. There appeared to be several exophytic cyst the left ovary. The largest measures up to 6 cm. There is no associated free fluid. According to records appears patient was given IV Flagyl and then discharged home with Phenergan advised to take Benadryl advised to follow-up with GI. We will continue with Flagyl for now We will repeat CT of abdomen and pelvis if no improvement. 2/2 Continue with Flagyl Continue with anti-emetics IV fluids as needed however patient is tolerating oral intake at this time Continue bland diet 2/3 Continue with Flagyl Insinuate antiemetics Tolerating oral fluids right now IV fluids as needed Continue bland diet (2) New onset type 2 diabetes mellitus Current Visit: Yes Status: Acute Assessment and Plan: Will check a fasting A1C in the morning. If confirmed, she will need to f/u with PCP for initiation and follow up of therapy. Diabetic nurse education will also need to be provided. 2/1 Patient will require diabetic education prior to discharge and will require close follow-up. Discussed with social media campaign manager patient will need home health as well. We will place on sliding scale insulin and Accu-Cheks before meals at bedtime A1c is 9.1 2/2 Continue with Accu-Cheks before meals at bedtime with sliding scale insulin 2/3 Continue with Accu-Cheks before meals at bedtime with sliding scale insulin she will require diabetic education prior to discharge and close follow-up (3) Essential hypertension Current Visit: Yes Status: Acute Assessment and Plan: Does not appear to be on any medications at the moment. Will monitor BP trend. Will require f/u and monitoring by PCP. 2/1 Currently appears to be controlled continue with home medications 2/2 Continue with home medications 2/3 Controlled this time continue with home medications (4) Obesity Current Visit: Yes Status: Acute Assessment and Plan: She will benefit from weight loss. Therapeutic lifestyle changes education was given. Will check a TSH, lipid panel and A1C for associated comorbidities. 2/1 Encourage weight loss and lifestyle changes 2/2 Encourage weight loss and lifestyle changes 2/3 Encouraged lifestyle changes and weight loss (5) DVT prophylaxis Current Visit: Yes Status: Acute Assessment and Plan: SubQ heparin. (6) Diarrhea Current Visit: Yes Status: Acute Assessment and Plan: 1 patient has been experiencing diarrhea for approximately a month CT of abdomen and pelvis obtained outlying facility on 04/24- show diffuse colonic wall thickening mild pericolonic inflammation particularly along the descending and sigmoid colon. A number of small reactive mesenteric lymph nodes are present findings suggest diffuse colitis. No further acute processes identified at the abdomen or pelvis. There is noted profound of diffuse hepatic steatosis and secondary hepatomegaly. There appeared to be several exophytic cyst the left ovary. The largest measures up to 6 cm. There is no associated free fluid. She was given IV Flagyl and discharged home. Will resume Flagyl this time if no improvement we will repeat CT of abdomen and pelvis GI panel positive- enteroaggregative E coli 2/2 Golden stable today continue with antibiotics IV fluids as needed and bland diet 2/3 Continues to be stable at this time continue with IV Flagyl and diet as tolerated (7) Skin abnormalities Current Visit: Yes Status: Acute Assessment and Plan: 1 she has redness and excoriation to skin folds and an pubic and rectal area-appears to be yeast -advised nursing to keep areas clean and dry-no skin to skin contact Nystatin powder Patient also has small lesions some are open and weeping-we will obtain wound cultures-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 we will initiate on vancomycin and cefepime Patient has poor hygiene-caregiver reports that patient attempts to take care of herself however have some difficulty-appears she has some cognitive delay social media campaign manager has been consulted for home health services 2/2 Continue with above treatment Encourage patient to keep areas clean and dry No skin to skin contact 2/3 Encourage patient to keep areas clean and dry no skin to skin contact encourage daily Dori Jennings culture Staphylococcus aureus gram-positive cocci and gram-negative rods Continue with vancomycin and cefepime (8) Colitis Current Visit: Yes Status: Acute Assessment and Plan: CT of abdomen and pelvis obtained outlying facility on 04/24- show diffuse colonic wall thickening mild pericolonic inflammation particularly along the descending and sigmoid colon. A number of small reactive mesenteric lymph nodes are present findings suggest diffuse colitis. No further acute processes identified at the abdomen or pelvis. There is noted profound of diffuse hepatic steatosis and secondary hepatomegaly. There appeared to be several exophytic cyst the left ovary. The largest measures up to 6 cm. There is no associated free fluid. Continue with IV Flagyl Antiemetics 2/3 Currently tolerating oral fluids Continue with IV Flagyl and anti-emetics - Time Spent with Patient Total time spent is greater than 50% in coordination of care (as documented) at patient's floor/unit and/or counseling patient: Internal Medicine: Result - Labs CBC & Chem 7: 04/29/18 04:16 04/29/18 04:16 Labs: Short CBC 04/29/18 Range/Units 04:16 WBC 7.4 (4.3-11.1) K/mcL Hgb 10.9 L (11.5-15.4) g/dL Hct 34.1 L (35.3-44.9) % Plt Count 425 H D (140-400) K/mcL Neutrophils # 4.6 (1.6-8.9) K/mcL BMP 04/29/18 04:16 Sodium 137 Potassium 3.1 L Chloride 103 Carbon Dioxide 26 BUN 4 L Creatinine 0.56 L Glucose 113 H Calcium 8.0 L Consult Discharge Plan - Plan Additional Instructions: [facility] has been set up and will call you within 48 hours after D/C to set up an admission date and time. If you need to contact them please call #[phone] or #[phone]. Referrals: Luna Lomax CNP [Advanced Practice Nurse] - 05/01/18 2:30 pm (1) Nausea and vomiting Qualifiers: Vomiting type: unspecified Vomiting Intractability: intractable Qualified Code(s): R11.2 - Nausea with vomiting, unspecified (4) Obesity Qualifiers: Obesity type: due to excess calories Obesity classification: adult class 3 (BMI >= 40) Serious obesity comorbidity presence: with serious comorbidity Body mass index: BMI 45.0-49.9 Qualified Code(s): E66.01 - Morbid (severe) obesity due to excess calories; Z68.42 - Body mass index (BMI) 45.0-49.9, adult (6) Diarrhea Qualifiers: Diarrhea type: unspecified type Qualified Code(s): R19.7 - Diarrhea, unspecified
[2018-04-30] MEDS: MetroNIDAZOLE 500 MG/100 ML 500 MG/100 ML BAG IVPB SCH ×2 (04:07→16:46)
[2018-04-30] MEDS: Cefepime HCl 2,000 MG in Water for inj. (sterile) 20 ML 20 ML IVP SCH (05:47)
[2018-04-30] MEDS: *HR* Heparin 5,000 UNIT/ML VIAL SQ SCH ×2 (05:47→16:46)
[2018-04-30] MEDS: Nystatin POWDER 30 GM BOTTLE TP SCH ×2 (09:04→15:27)
[2018-04-30] MEDS: Pantoprazole 40 MG VIAL IVP SCH (09:04)
[2018-04-30] MEDS: Lactobacillus 1 EACH CAP.SPRINK PO SCH (09:05)
--- NOTE | 2018-04-30 11:49 | Gastroenterology Consult Note ---
<Tiffanie Wagoner - Last Filed: 04/30/18 11:41> Date of Encounter: 04/30/18 Time of Encounter: 11:25 - Assessment and plan (1) Other and unspecified Escherichia coli (E. coli) Current Visit: Yes Status: Acute Assessment and plan: Stool was positive for EAEC e. coli. Has been treated with flagyl, vanco and cefepime recently. Would recommend cipro x 5 days. If diarrhea unresolved or worsened will consider colonoscopy. (2) Nausea and vomiting Current Visit: Yes Status: Acute Assessment and plan: Continue PPI and antiemetics as needed. Pt currently improved, advance diet as tolerated. Likely due to EAEC infection. Qualifiers: Vomiting type: unspecified Vomiting Intractability: intractable Qualified Code(s): R11.2 - Nausea with vomiting, unspecified (3) Colitis Current Visit: Yes Status: Acute Assessment and plan: F/U as outpatient, may need colonoscopy if unresolved, likely infectious - Time Spent With Patient Total time spent is greater than 50% in coordination of care (as documented) at patient's floor/unit and/or counseling patient: GI History of Present Illness - Data of Consult Patient: new to practice Consult date: 04/30/18 Requesting Physician: Beverly Schultz MD - Consult Narrative Reason for consult: nausea/vomiting/diarrhea History of present illness: Ms. Motta is a 23 year old obese female with a past medical history of HTN, and recently dx with DM. She presents with a 1 month hisory of nausea, vomiting and watery diarrhea. She has been to [place] [facility] on 2 occasions because of this issue. CT abdomen at [place] showed diffuse colitis, she was started on Flagyl. She comes in now because she has significantly worsened, has been unable to tolerate PO. Per her family member she has only been able to tolerate liquids for the past week. She reports multiple watery BMs daily, denies any blood or mucus. She has abdominal pain, denies fever or chills. Labs revealed a serum K of 2.9. Stool studies were positive for EAEC e. coli. She states she feels some better today and has been able to eat a small amount of solid foods. Past Med Surg Social Fam HX - Past Medical History Medical history: diabetes, hypertension Psychiatric history: no psych history - Past Surgical History Surgical History: no surgical history - Social History Smoking Status: Never smoker Smokeless Tobacco Status: No Alcohol use: none Drug use: none - Family History Mother Living Status: Still Living Hx Family Endocrine Disorder: Yes (dm) Review of Systems: GI: as per [place] GENERAL: denies fever, has some chills EYES: denies yellow discoloration ENT: denies pain with swallowing or difficulty swallowing CARDIO: denies chest pain, palpitations RESP: No Shortness of breath with exertion : denies change in color of urine NEURO: denies any weakness HEME: Denies any bruising MS: denies joint pain, joint swelling or back pain. DERM: has multiple open sores PSYCH: Denies history of anxiety or depression - Constitutional Vitals: Temp Pulse Resp BP Pulse Ox 98.3 F 93 18 163/95 98 04/30/18 11:05 04/30/18 11:05 04/30/18 11:05 04/30/18 11:05 04/30/18 11:05 Exam: CONSTITUTIONAL:alert, no acute distress.HEAD:normocephalic.EYES:no jaundice.NECK:no obvious swelling.HEART:regular rate and rhythm, no murmurs.LUNGS:bilateral fair air entry.ABDOMEN:non distended, soft, non tender, very difficult to palpate due to obesity, RECTAL EXAM:Deferred.EXTREMITIES:no clubbing, cyanosis or edema.SKIN:no stigmata of chronic liver disease, multiple open areas covered with bandages.NEUROLOGIC:no obvious focal defect. Results - Labs CBC & Chem 7: 04/29/18 04:16 04/29/18 04:16 Labs: Last Result Calcium 8.0 mg/dL (8.6-10.3) L 04/29/18 04:16 Triglycerides 57 mg/dL (< 150) 04/26/18 05:31 Entire Visit Hgb 10.9 g/dL (11.5-15.4) L 04/29/18 04:16 Hct 34.1 % (35.3-44.9) L 04/29/18 04:16 Total Bilirubin 0.3 mg/dL (0.3-1.0) 04/26/18 05:31 AST 11 Units/L (13-39) L 04/26/18 05:31 ALT 9 Units/L (7-52) 04/26/18 05:31 Consult Discharge Plan - Plan Additional Instructions: [facility] has been set up and will call you within 48 hours after D/C to set up an admission date and time. If you need to contact them please call #[phone] or #[phone]. Referrals: Luna Lomax, TURF KEEPER [Advanced Practice Nurse] - 05/01/18 2:30 pm <Karen Valencia - Last Filed: 04/30/18 12:42> Date of Encounter: 04/30/18 Time of Encounter: 12:30 - Time Spent With Patient Total time spent is greater than 50% in coordination of care (as documented) at patient's floor/unit and/or counseling patient: GI History of Present Illness - Data of Consult Requesting Physician: Beverly Schultz MD - Consult Narrative History of present illness: Ms. Motta is a 23 year old female - Constitutional Vitals: Temp Pulse Resp BP Pulse Ox 98.3 F 93 18 163/95 98 04/30/18 11:05 04/30/18 11:05 04/30/18 11:05 04/30/18 11:05 04/30/18 11:05 Results - Labs CBC & Chem 7: 04/29/18 04:16 04/29/18 04:16 Labs: Last Result Calcium 8.0 mg/dL (8.6-10.3) L 04/29/18 04:16 Triglycerides 57 mg/dL (< 150) 04/26/18 05:31 Entire Visit Hgb 10.9 g/dL (11.5-15.4) L 04/29/18 04:16 Hct 34.1 % (35.3-44.9) L 04/29/18 04:16 Total Bilirubin 0.3 mg/dL (0.3-1.0) 04/26/18 05:31 AST 11 Units/L (13-39) L 04/26/18 05:31 ALT 9 Units/L (7-52) 04/26/18 05:31 - Attending Attestation I have personally performed a face to face evaluation on this patient. I have reviewed and agree with the care plan. History and Exam by me shows: Pt with the Escherichia coli gastroenteritis status post treatment still having diarrhea although per patient diarrhea is improving. On examination abdomen is benign. Assessment: Escherichia coli gastroenteritis. Recommendation: This patient is still having diarrhea and was only treated as an outpatient with by mouth Flagyl we will recommend Cipro for 5 days. If diarrhea persists then she could have a postinfectious IBS and will recommend Bentyl then
[2018-04-30 12:54] LABS: Basophils # 0.1 K/mcL (0.0-0.2); Basophils % 0.8 %; Eosinophils # 0.4 K/mcL (0.0-0.6); Eosinophils % 5.2 %; Hemoglobin 10.6 g/dL (11.5-15.4); Immature Granulocytes % 1.7 % (0-4); Lymphocytes # 1.5 K/mcL (0.6-4.6); Lymphocytes % 20.6 %; Mean Corpuscular HGB Conc 32.1 g/dL (31.6-35.5); Mean Corpuscular Hemoglobin 26.6 pg (28.0-33.3); Mean Corpuscular Volume 82.7 fL (83.0-100.0); Mean Platelet Volume 9.8 fL (9.4-12.4); Monocytes % 13.2 %; Neutrophils # 4.2 K/mcL (1.6-8.9); Platelet Count 412 K/mcL (140-400); Red Blood Count 3.99 M/mcL (3.82-4.97); Red Cell Distribution Width 18.6 % (11.5-14.5); Segmented Neutrophils % 58.5 %
[2018-04-30 13:08] LABS: BUN/Creatinine Ratio 7 (6-26); Blood Urea Nitrogen 4 mg/dL (6-20); Calcium 7.7 mg/dL (8.6-10.3); Carbon Dioxide 23 mEq/L (23-29); Chloride 101 mEq/L (98-107); Glucose 116 mg/dL (70-105); Osmolality,Calculated 278 (280-300); Potassium 2.9 mEq/L (3.5-5.1); Sodium 135 mEq/L (136-145); eGFR For Non-African Americans > 60 (> 60)
--- NOTE | 2018-04-30 15:44 | Internal Med Progress Note ---
Hospitalist Progress Note - Encounter Date of Encounter: 04/30/18 Time of Encounter: 11:00 - Subjective Interval History: Patient was seen and examined at bedside. Currently patient denies any abdominal pain complains of groin pain-attempted breakfast however vomited-we will continue with antibiotics as well as Flagyl. Encouraged patient to Bath and keep area clean and dry - Exam Vitals: Temp Pulse Resp BP Pulse Ox 98.3 F 93 18 163/95 98 04/30/18 11:05 04/30/18 11:05 04/30/18 11:05 04/30/18 11:05 04/30/18 11:05 Exam: Vitals: Reviewed General: Obese white female lying in bed, notably fatigued. Skin: Warm and supple.-Open small lesions approximate pea-sized on pubic area, right abdomen and under right axilla area. Excoriated skin covering skinfolds as well as pubic and groin area extending into the rectal area- HEENT: Moist mucous membranes. No conjunctivae pallor. Neck: No lymphadenopathy. No JVD. No carotid bruits. No palpable thyroid. Chest: Normal thoracic expansion. Normal breath sounds. Clear to auscultation. Heart: Normal S1 & S2; rhythmic. No rubs or murmurs. Abdomen: Non-distended, soft and mild tenderness to palpation in the right flank. No peritoneal reaction. Extremities: No clubbing, cyanosis or edema. No calf tenderness. Normal distal pulses. Neurological: Awake, alert and oriented to person, place and time. No focal deficits. Psych: Affect appropriate. - Assessment and Plan (1) Nausea and vomiting Current Visit: Yes Status: Acute Assessment and Plan: Unclear etiology. It is a persistent issue based on timeline and has led to her current hypokalemic state. The fact that she has associated diarrhea gives concern for an infectious process that may be at play and given its persistence, will send a GI panel for evaluation. In the interim, will provide symptomatic relief measures and fluid resuscitation. Clear liquid diet for now and advance as tolerated. If symptoms continue or worsen overnight, will get a CT scan for more evaluation. / This has been improving patient is tolerating full liquid diet GI panel does show- Enteroaggregative E. Coli I did receive CT results from [facility] which does show diffuse colonic wall thickening mild pericolonic inflammation particularly along the descending and sigmoid colon. A number of small reactive mesenteric lymph nodes are present findings suggest diffuse colitis. No further acute processes identified at the abdomen or pelvis. There is noted profound of diffuse hepatic steatosis and secondary hepatomegaly. There appeared to be several exophytic cyst the left ovary. The largest measures up to 6 cm. There is no associated free fluid. According to records appears patient was given IV Flagyl and then discharged home with Phenergan advised to take Benadryl advised to follow-up with GI. We will continue with Flagyl for now We will repeat CT of abdomen and pelvis if no improvement. 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 If confirmed, she will need to f/u with PCP for initiation and follow up of therapy. Diabetic nurse education will also need to be provided. 2/1 Patient will require diabetic education prior to discharge and will require close follow-up. Discussed with social welfare administrator patient will need home health as well. We will place on sliding scale insulin and Accu-Cheks before meals at bedtime A1c is 9.1 2/2 Continue with Accu-Cheks before meals at bedtime with sliding scale insulin 2/3 Continue with Accu-Cheks before meals at bedtime with sliding scale insulin she will require diabetic education prior to discharge and close follow-up 2/4 continue with Accu-Cheks before meals and at bedtime with sliding scale insulin (3) Essential hypertension Current Visit: Yes Status: Acute Assessment and Plan: Does not appear to be on any medications at the moment. Will monitor BP trend. Will require f/u and monitoring by PCP. 2/1 Currently appears to be controlled continue with home medications 2/2 Continue with home medications 2/3 Controlled this time continue with home medications 2/4 stable at this time continue with home medications (4) Obesity Current Visit: Yes Status: Acute Assessment and Plan: She will benefit from weight loss. Therapeutic lifestyle changes education was given. Will check a TSH, lipid panel and A1C for associated comorbidities. 2/1 Encourage weight loss and lifestyle changes 2/2 Encourage weight loss and lifestyle changes 2/3 Encouraged lifestyle changes and weight loss 2/4 encourage lifestyle changes and weight loss (5) DVT prophylaxis Current Visit: Yes Status: Acute Assessment and Plan: SubQ heparin. (6) Diarrhea Current Visit: Yes Status: Acute Assessment and Plan: 1 patient has been experiencing diarrhea for approximately a month CT of abdomen and pelvis obtained outlying facility on 04/24- show diffuse colonic wall thickening mild pericolonic inflammation particularly along the descending and sigmoid colon. A number of small reactive mesenteric lymph nodes are present findings suggest diffuse colitis. No further acute processes identified at the abdomen or pelvis. There is noted profound of diffuse hepatic steatosis and secondary hepatomegaly. There appeared to be several exophytic cyst the left ovary. The largest measures up to 6 cm. There is no associated free fluid. She was given IV Flagyl and discharged home. Will resume Flagyl this time if no improvement we will repeat CT of abdomen and pelvis GI panel positive- enteroaggregative E coli 2/2 Golden stable today continue with antibiotics IV fluids as needed and bland diet 2/3 Continues to be stable at this time continue with IV Flagyl and diet as tolerated 2/4 patient continues to experience intermittent diarrhea was evaluated by GI-most likely secondary to EEA EC [id number] diet as tolerated (7) Skin abnormalities Current Visit: Yes Status: Acute Assessment and Plan: 1 she has redness and excoriation to skin folds and an pubic and rectal area- appears to be yeast -advised nursing to keep areas clean and dry-no skin to skin contact Nystatin powder Patient also has small lesions some are open and weeping-we will obtain wound cultures-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 we will initiate on vancomycin and cefepime Patient has poor hygiene-caregiver reports that patient attempts to take care of herself however have some difficulty-appears she has some cognitive delay social welfare administrator has been consulted for home health services 2/2 Continue with above treatment Encourage patient to keep areas clean and dry No skin to skin contact 2/3 Encourage patient to keep areas clean and dry no skin to skin contact encourage daily Dori Peñaloza culture Staphylococcus aureus gram-positive cocci and gram-negative rods Continue with vancomycin and cefepime 2/4 gross patient keep ears clean and dry with no skin skin contact encourage daily babying Culture does showMRSA Enterococcus faecalis and Pseudomonas-sensitive to Cipro however pharmacy recommending Levaquin due to better Pseudomonas coverage (8) Colitis Current Visit: Yes Status: Acute Assessment and Plan: CT of abdomen and pelvis obtained outlying facility on 04/24- show diffuse colonic wall thickening mild pericolonic inflammation particularly along the descending and sigmoid colon. A number of small reactive mesenteric lymph nodes are present findings suggest diffuse colitis. No further acute processes identified at the abdomen or pelvis. There is noted profound of diffuse hepatic steatosis and secondary hepatomegaly. There appeared to be several exophytic cyst the left ovary. The largest measures up to 6 cm. There is no associated free fluid. Continue with IV Flagyl Antiemetics 2/3 Currently tolerating oral fluids Continue with IV Flagyl and anti-emetics 2/4 evaluated by GI most likely infectious continue with Flagyl as well as cipro- will substitute for levaquin since better Pseudomonas coverage GI recommending possible colonoscopy as outpatient if no improvement Clear liquids and advance as tolerated (9) Hypokalemia Current Visit: Yes Status: Acute Assessment and Plan: secondary GI losses we will replace and monitor Place on potassium 20 mEq twice a day - Time Spent with Patient Total time spent is greater than 50% in coordination of care (as documented) at patient's floor/unit and/or counseling patient: Internal Medicine: Result - Labs CBC & Chem 7: 04/30/18 12:08 04/30/18 12:08 Labs: Short CBC 04/30/18 Range/Units 12:08 WBC 7.3 (4.3-11.1) K/mcL Hgb 10.6 L (11.5-15.4) g/dL Hct 33.0 L (35.3-44.9) % Plt Count 412 H (140-400) K/mcL Neutrophils # 4.2 (1.6-8.9) K/mcL BMP 04/30/18 12:08 Sodium 135 L Potassium 2.9 L Chloride 101 Carbon Dioxide 23 BUN 4 L Creatinine 0.56 L Glucose 116 H Calcium 7.7 L Consult Discharge Plan - Plan Additional Instructions: [facility] has been set up and will call you within 48 hours after D/C to set up an admission date and time. If you need to contact them please call #[phone] or #[phone]. Referrals: Luna Lomax, OFFICE MACHINE SERVICER APPRENTICE [Advanced Practice Nurse] - 05/08/18 2:30 pm (1) Nausea and vomiting Qualifiers: Vomiting type: unspecified Vomiting Intractability: intractable Qualified Code(s): R11.2 - Nausea with vomiting, unspecified (4) Obesity Qualifiers: Obesity type: due to excess calories Obesity classification: adult class 3 (BMI >= 40) Serious obesity comorbidity presence: with serious comorbidity Body mass index: BMI 45.0-49.9 Qualified Code(s): E66.01 - Morbid (severe) obesity due to excess calories; Z68.42 - Body mass index (BMI) 45.0-49.9, adult (6) Diarrhea Qualifiers: Diarrhea type: unspecified type Qualified Code(s): R19.7 - Diarrhea, unspecified
[2018-05-01] MEDS: MetroNIDAZOLE 500 MG/100 ML 500 MG/100 ML BAG IVPB SCH ×2 (00:45→08:37)
[2018-05-01] MEDS: *HR* Heparin 5,000 UNIT/ML VIAL SQ SCH ×2 (05:55→17:53)
[2018-05-01 07:45] LABS: Basophils # 0.1 K/mcL (0.0-0.2); Basophils % 0.7 %; Eosinophils # 0.3 K/mcL (0.0-0.6); Hematocrit 33.2 % (35.3-44.9); Hemoglobin 10.8 g/dL (11.5-15.4); Immature Granulocytes % 1.3 % (0-4); Lymphocytes # 1.5 K/mcL (0.6-4.6); Lymphocytes % 19.7 %; Mean Corpuscular HGB Conc 32.5 g/dL (31.6-35.5); Mean Corpuscular Hemoglobin 26.9 pg (28.0-33.3); Mean Corpuscular Volume 82.8 fL (83.0-100.0); Mean Platelet Volume 9.8 fL (9.4-12.4); Neutrophils # 4.6 K/mcL (1.6-8.9); Platelet Count 424 K/mcL (140-400); Red Blood Count 4.01 M/mcL (3.82-4.97); Red Cell Distribution Width 19.1 % (11.5-14.5); Segmented Neutrophils % 61.3 %
[2018-05-01 07:48] LABS: BUN/Creatinine Ratio 7 (6-26); Blood Urea Nitrogen 3 mg/dL (6-20); Carbon Dioxide 24 mEq/L (23-29); Chloride 101 mEq/L (98-107); Glucose 97 mg/dL (70-105); Osmolality,Calculated 274 (280-300); Potassium 3.2 mEq/L (3.5-5.1); Sodium 134 mEq/L (136-145); eGFR For Non-African Americans > 60 (> 60)
[2018-05-01] MEDS ORDERED: Levofloxacin 750 MG/150 ML 750 MG/150 ML BAG IVPB SCH (09:00)
[2018-05-01] MEDS: Pantoprazole 40 MG VIAL IVP SCH (11:06)
[2018-05-01] MEDS: Lactobacillus 1 EACH CAP.SPRINK PO SCH (11:06)
[2018-05-01] MEDS ORDERED: Sulfamethoxazole/Trimeth DS 1 EACH TABLET PO SCH (15:37)
[2018-05-01] MEDS ORDERED: Ampicillin 2 GM in 0.9 % Sodium Chloride Mini Bag 100 ML IVPB SCH ×2 (16:00→18:00)
--- NOTE | 2018-05-01 16:45 | General Surgery Consult Note ---
Date of Encounter: 05/01/18 Time of Encounter: 16:45 Assessment and Plan (1) Hidradenitis axillaris Current Visit: Yes Status: Acute No surgical intervention is needed at this time. Continue abx. OK to change to PO at time of discharge. Recommend f/u with wound care to ensure adequate response to abx. (2) Folliculitis Current Visit: Yes Status: Acute No surgical intervention is needed at this time. Continue abx. OK to change to PO at time of discharge. Recommend f/u with wound care to ensure adequate response to abx. (3) Essential hypertension Current Visit: Yes Status: Acute (4) New onset type 2 diabetes mellitus Current Visit: Yes Status: Acute Glucose control needed for adequate abx response and good skin healing. Thank you for allowing me to participate in this patient's care. History of Present Illness Consult date: 05/01/18 Reason for consult: other (skin abscess) Requesting physician: Jaci Tellez History of present illness: This 23 y/o obese female presents to hospital 5 days ago complaining of int ractable nausea and vomiting. She is dx with uncontrolled HTN and DM on admission. During the course of her hospitalization she is found to have multiple wound on her skin. She reports these skin issues are not new but, currently seem to be worsening. She reports pain associated with these wounds. S he reveals a single wound in right axilla, a single wound on right lateral mid- abdomen, a single wound on suprapubic skin and a single wound on right mons pubis. She reports nausea and vomiting have resolved and she is feeling better and states that she wants to go home. Past Med Surg Social Fam HX - Past Medical History Medical history: diabetes, hypertension Psychiatric history: no psych history - Past Surgical History Surgical History: no surgical history - Social History Smoking Status: Never smoker Smokeless Tobacco Status: No Alcohol use: none Drug use: none - Family History Mother Living Status: Still Living Hx Family Endocrine Disorder: Yes (dm) Medications and Allergies No Known Home Drugs 04/26/18 [History] Allergy/AdvReac Type Severity Reaction Status Date / Time No Known Allergies Allergy Verified 04/25/18 22:02 Review of Systems All systems PM: The remainder of the systems were reviewed and are negative - EENT Nose, mouth and throat: no headache(s), no nasal congestion, no nasal discharge, no sore throat - Breasts no skin changes - Cardiovascular no chest pain, no dyspnea, no edema, no leg ulcers - Respiratory no cough, no dyspnea, no wheezing - Gastrointestinal no abdominal pain (resolved), no nausea (resolved), no vomiting (resolved) - Genitourinary Genitourinary: no difficulty urinating, no urinary urgency - Musculoskeletal other (sedentary) - Integumentary as per HPI, erythema, wounds, other (red and painful skin lesions) - Neurological no confusion, no dizziness, no focal weakness - Psychiatric anxiety, depression - Endocrine fatigue - Hematologic/Lymphatic no lymphadenopathy General Surgery Exam Initial Vital Signs Temp Pulse Resp BP Pulse Ox 98.1 F 125 16 136/95 96 04/25/18 21:59 04/25/18 21:59 04/25/18 21:59 04/25/18 21:59 04/25/18 21:59 - General physical appearance no distress, obese - Eyes PERRL - ENT normal mucosa. negative: no congestion, nasal discharge - Neck trachea midline, no lymphadectomy, no venous distension - Respiratory clear to auscultation - Cardiovascular Cardiovascular exam: Present: RRR - Abdomen Abdomen general surgery: Present: bowel sounds present, wound (right lateral abdomen, mons pubis and suprapubic area) Hernia: Present: none - Integumentary Integumentary general surgery: Present: other (multiple skin lesions with erythema, TTP and no active drainage. #1 right axilla, no drainage, c/w hidradenitis supporative. #2 right lateral abdominal wall without active drainage with 2-3 mm opening and 1 cm depth. #3 suprapubic lesion with erythma and no active drainage. #4 open wound right mons pubis with no tunneling) - Neurologic Present: CN 2-12 grossly intact, normal coordination, normal sensation - Psychiatric Psychiatric general surgery: Present: A&Ox3, appropriate Exam Initial Vital Signs Temp Pulse Resp BP Pulse Ox 98.1 F 125 16 136/95 96 04/25/18 21:59 04/25/18 21:59 04/25/18 21:59 04/25/18 21:59 04/25/18 21:59 Results - Labs 05/01/18 07:02 05/01/18 07:02 Abnormal lab results Hgb 10.8 g/dL (11.5-15.4) L 05/01/18 07:02 Hct 33.2 % (35.3-44.9) L 05/01/18 07:02 MCV 82.8 fL (83.0-100.0) L 05/01/18 07:02 MCH 26.9 pg (28.0-33.3) L 05/01/18 07:02 RDW 19.1 % (11.5-14.5) H 05/01/18 07:02 Plt Count 424 K/mcL (140-400) H 05/01/18 07:02 Sodium 134 mEq/L (136-145) L 05/01/18 07:02 Potassium 3.2 mEq/L (3.5-5.1) L 05/01/18 07:02 BUN 3 mg/dL (6-20) L 05/01/18 07:02 Creatinine 0.44 mg/dL (0.60-1.20) L 05/01/18 07:02 POC Glucose 111 mg/dL (70-99) H 04/30/18 20:21 Hemoglobin A1c 9.1 % (-5.6) H 04/26/18 05:31 Calculated Osmolality 274 (280-300) L 05/01/18 07:02 Calcium 8.0 mg/dL (8.6-10.3) L 05/01/18 07:02 AST 11 Units/L (13-39) L 04/26/18 05:31 Serum Total Protein 6.0 g/dL (6.4-8.9) L 04/26/18 05:31 Albumin 2.3 g/dL (3.5-5.7) L 04/26/18 05:31 Globulin 3.7 g/dL (2.4-3.5) H 04/26/18 05:31 Albumin/Globulin Ratio 0.6 (1.1-2.2) L 04/26/18 05:31 HDL Cholesterol 16 mg/dL (40-59) L 04/26/18 05:31 Urine Clarity Cloudy (Clear) A 04/25/18 23:48 Urine Protein 100 mg/dL (Neg-Trace) H 04/25/18 23:48 Urine Ketones 80 mg/dL (Negative) H 04/25/18 23:48 Urine Blood Moderate (Negative) H 04/25/18 23:48 Urine Bilirubin Small (Negative) H 04/25/18 23:48 Ur Leukocyte Esterase Small (Negative) H 04/25/18 23:48 Urine Microscopic RBC 3-5 per hpf (0-3) H 04/25/18 23:48 Urine Microscopic WBC 5-15 per hpf (0-3) H 04/25/18 23:48 Ur Squamous Epith Cells Many per lpf (None-Few) H 04/25/18 23:48 Ur Culture Indicated? NO. (NO) A 04/25/18 23:48 Stool EAEC (PCR) DETECTED (Not detect) A 04/26/18 05:30 Vancomycin Trough 12 mcg/mL (5-10) H 04/29/18 04:16 Diabetes panel 05/01/18 Range/Units 07:02 Sodium 134 L (136-145) mEq/L Potassium 3.2 L (3.5-5.1) mEq/L Chloride 101 (98-107) mEq/L Carbon Dioxide 24 (23-29) mEq/L BUN 3 L (6-20) mg/dL Creatinine 0.44 L (0.60-1.20) mg/dL Glucose 97 (70-105) mg/dL Calcium 8.0 L (8.6-10.3) mg/dL Calcium panel 05/01/18 Range/Units 07:02 Calcium 8.0 L (8.6-10.3) mg/dL Pituitary panel 05/01/18 Range/Units 07:02 Sodium 134 L (136-145) mEq/L Potassium 3.2 L (3.5-5.1) mEq/L Chloride 101 (98-107) mEq/L Carbon Dioxide 24 (23-29) mEq/L BUN 3 L (6-20) mg/dL Creatinine 0.44 L (0.60-1.20) mg/dL Glucose 97 (70-105) mg/dL Calcium 8.0 L (8.6-10.3) mg/dL Adrenal panel 05/01/18 Range/Units 07:02 Sodium 134 L (136-145) mEq/L Potassium 3.2 L (3.5-5.1) mEq/L Chloride 101 (98-107) mEq/L Carbon Dioxide 24 (23-29) mEq/L BUN 3 L (6-20) mg/dL Creatinine 0.44 L (0.60-1.20) mg/dL Glucose 97 (70-105) mg/dL Calcium 8.0 L (8.6-10.3) mg/dL All other labs normal. Consult Discharge Plan - Plan Additional Instructions: [facility] has been set up and will call you within 48 hours after D/C to set up an admission date and time. If you need to contact them please call #[phone] or #[phone]. Referrals: Luna Lomax CNP [Advanced Practice Nurse] - 05/08/18 2:30 pm
--- NOTE | 2018-05-01 18:14 | Discharge Summary ---
- NOTES TO OUTPATIENT PROVIDER Notes to Outpatient Provider: Patient will need to have electrolytes monitored closely due to frequent nausea vomiting diarrhea check Chem-7. Currently on antibiotics Bactrim and amoxicillin and Levaquin Date of Encounter: 05/01/18 Time of Encounter: 18:04 - Discharge Diagnosis (1) Nausea and vomiting Priority: Primary Status: Acute Qualifiers: Vomiting type: unspecified Vomiting Intractability: intractable Qualified Code(s): R11.2 - Nausea with vomiting, unspecified (2) New onset type 2 diabetes mellitus Priority: Secondary Status: Acute (3) Essential hypertension Priority: Secondary Status: Acute (4) Obesity Priority: Secondary Status: Acute Qualifiers: Obesity type: due to excess calories Obesity classification: adult class 3 (BMI >= 40) Serious obesity comorbidity presence: with serious comorbidity Body mass index: BMI 45.0-49.9 Qualified Code(s): E66.01 - Morbid (severe) obesity due to excess calories; Z68.42 - Body mass index (BMI) 45.0-49.9, adult (5) Diarrhea Priority: Secondary Status: Acute Qualifiers: Diarrhea type: unspecified type Qualified Code(s): R19.7 - Diarrhea, unspecified (6) Skin abnormalities Priority: Secondary Status: Acute (7) Colitis Priority: Secondary Status: Acute (8) Hypokalemia Priority: Secondary Status: Acute Hospital course: Ms. Motta is a 23 year old female past medical history of hypertension diabetes presented to [facility] ED on 04/26/18 complaining of one month history of nausea vomiting watery diarrhea she had presented to [facility] ER on 2 other occasions for same complaint. She was diagnosed with colitis per CT scan and was given IV Flagyl 1 at this facility. She presented to this facility because her symptoms had significantly worsened and she is unable tolerate by mouth intake and has had abdominal pain but no fevers or chills. She have a potassium of 2.9. During admission patient was given IV fluids as well as antiemetics her electrolytes were monitored and replaced. Initiated on vancomycin and Zosyn as well as Flagyl Lab work did reveal enteroaggregative Escherichia coli in her stool-she continued to experience nausea and vomiting was unable tolerate oral intake. Was evaluated by GI who advised to continue with antibiotic treatment no EGD at this time and can follow-up as an outpatient if nausea and vomiting continue. Recent did have yeast within the folds of her scan particularly in her. Area here and she also had folliculitis and hidradenitis axillaris-these wounds were opened and draining-wound cultures did show MRSA enterococcus faecalis pseudomonas.-Antimicrobial services team-Dr. Chen and pharmacist Erick recommending amoxicillin Levaquin and Bactrim once physician to oral antibiotics. Patient was evaluated by surgery concerning wounds-no surgical intervention at this time however recommending follow-up with wound care clinic. client services associate was consulted for home health aides to assist patient and personal hygiene. Advised patient to follow-up with primary care provider will not clear clinic to bathe regularly and keep folds of skin dry. To continue all antibiotics and complete course as prescribed. She has been tolerating oral liquid intake advised patient to advance diet as tolerated and to return to the ER if vomiting persists. Patient was given prescription for antibiotics as well as lactobacillus and potassium. I also advised patient to have chemistry checked later this week to monitor lites lites. Patient is hemodynamically stable at this time and is ready for discharge - Time Spent with Patient Total time spent providing and/or coordinating discharge services: - Discharge Medications Prescriptions: Ondansetron ODT [Zofran ODT] 4 mg SL Q6HR PRN #12 tab.rapdis PRN Reason: Nausea And Vomiting Amoxicillin [Amoxil] 500 mg PO TID #30 capsule Lactobacillus [Culturelle] 2 each PO DAILY #30 cap.sprink Levofloxacin [Levaquin] 750 mg PO DAILY #10 tablet Miconazole 2% cream [Moris Antifungal] 1 appl TP BID #1 tube Potassium Chloride 20 meq PO BIDWM #3 tab.er.prt Sulfamethoxazole/Trimeth DS [Bactrim Ds] 1 each PO BID #20 tablet Home Medications: Amoxicillin [Amoxil] 500 mg PO TID #30 capsule 05/01/18 [Rx] Lactobacillus [Culturelle] 2 each PO DAILY #30 cap.sprink 05/01/18 [Rx] Levofloxacin [Levaquin] 750 mg PO DAILY #10 tablet 05/01/18 [Rx] Miconazole 2% cream [Moris Antifungal] 1 appl TP BID #1 tube 05/01/18 [Rx] Ondansetron ODT [Zofran ODT] 4 mg SL Q6HR PRN #12 tab.rapdis 05/01/18 [Rx] Potassium Chloride 20 meq PO BIDWM #3 tab.er.prt 05/01/18 [Rx] Sulfamethoxazole/Trimeth DS [Bactrim Ds] 1 each PO BID #20 tablet 05/01/18 [Rx] Allergies/Adverse Reactions: Allergy/AdvReac Type Severity Reaction Status Date / Time No Known Allergies Allergy Verified 04/25/18 22:02 Date of admission: 04/28/18 17:38 Primary care physician: PCP NONE Consults: 04/27/18 16:06 Consult to Wound Care [CONS] Routine Reason for Consult: open lesions on pubic area as well as excoriation Time Notified: 16:07 Call Completed: Yes 04/30/18 11:32 Consult to Gastroenterology [CONS] Routine Consulting Provider: [facility] [place] Reason for Consult: N/V/D Time Notified: 11:35 Call Completed: Yes 05/01/18 13:59 Consult to Surgery [CONS] Routine Consulting Provider: [facility] Reason for Consult: multiple wounds to R axilla pubic area R upper quadrant Time Notified: 14:00 Call Completed: Yes Discharging clinician: Jaci Tellez Anticipated date of discharge: 05/01/18 - Constitutional Vitals: Temp Pulse Resp BP Pulse Ox 98.4 F 100 16 151/91 99 05/01/18 15:15 05/01/18 15:15 05/01/18 15:15 05/01/18 15:15 05/01/18 15:15 Exam: Vitals: Reviewed General: Obese white female lying in bed, notably fatigued. Skin: Warm and supple.-Open small lesions approximate pea-sized on pubic area, right abdomen and under right axilla area. Excoriated skin covering skinfolds as well as pubic and groin area extending into the rectal area- HEENT: Moist mucous membranes. No conjunctivae pallor. Neck: No lymphadenopathy. No JVD. No carotid bruits. No palpable thyroid. Chest: Normal thoracic expansion. Normal breath sounds. Clear to auscultation. Heart: Normal S1 & S2; rhythmic. No rubs or murmurs. Abdomen: Non-distended, soft and mild tenderness to palpation in the right flank. No peritoneal reaction. Extremities: No clubbing, cyanosis or edema. No calf tenderness. Normal distal pulses. Neurological: Awake, alert and oriented to person, place and time. No focal deficits. Psych: Affect appropriate. - Patient Status Disposition: Home, Self-Care Condition: Fair Functional capacity at discharge: independent ambulation Overall status at discharge: patient is back to baseline - Ambulatory Orders Ambulatory Orders: Basic Metabolic Panel [CHEM] Time Frame: 05/04/18, Facility: [facility], Location: Lab - Discharge Instructions Follow Up With: Luna Lomax CNP [Advanced Practice Nurse] - 05/08/18 2:30 pm Additional Instructions: [facility] has been set up and will call you within 48 hours after D/C to set up an admission date and time. If you need to contact them please call #[phone] or #[phone]. She has to bathe with antibacterial soap such as Dial ensuring that all folds of skin are dry Attempt to stay hydrated with water Follow-up with the wound clinic - Diet and Activity Activity: increase activity as tolerated Diet: advance to your usual diet
--- NOTE | 2018-05-01 18:59 | Physician Discharge Referral ---
Home Health/Hosp Referral Info Transfer to: Home Health Attending Provider: diana crain Provider in Charge Post Discharge: PCP - Diagnosis (1) Nausea and vomiting Priority: Primary Status: Acute (2) New onset type 2 diabetes mellitus Priority: Secondary Status: Acute (3) Essential hypertension Priority: Secondary Status: Acute (4) Obesity Priority: Secondary Status: Acute (5) Diarrhea Priority: Secondary Status: Acute (6) Skin abnormalities Priority: Secondary Status: Acute (7) Colitis Priority: Secondary Status: Acute (8) Hypokalemia Priority: Secondary Status: Acute - Respiratory Orders Smoking Cessation: Smoking cessation has been advised. For more information, call the [place] Tobacco Quit Line at 8-577-VCXV-NOW. - Diet/Nutrition Diet/Nutrition Orders: No Concentrated Sweets - Activity Activity Orders: Up ad vida - Services Needed Following services are medically necessary services: Home Health Aide - Transfer Medications Prescriptions: Ondansetron ODT [Zofran ODT] 4 mg SL Q6HR PRN #12 tab.rapdis PRN Reason: Nausea And Vomiting Amoxicillin [Amoxil] 500 mg PO TID #30 capsule Lactobacillus [Culturelle] 2 each PO DAILY #30 cap.sprink Levofloxacin [Levaquin] 750 mg PO DAILY #10 tablet Miconazole 2% cream [Moris Antifungal] 1 appl TP BID #1 tube Potassium Chloride 20 meq PO BIDWM #3 tab.er.prt Sulfamethoxazole/Trimeth DS [Bactrim Ds] 1 each PO BID #20 tablet Home Medications: Amoxicillin [Amoxil] 500 mg PO TID #30 capsule 05/01/18 [Rx] Lactobacillus [Culturelle] 2 each PO DAILY #30 cap.sprink 05/01/18 [Rx] Levofloxacin [Levaquin] 750 mg PO DAILY #10 tablet 05/01/18 [Rx] Miconazole 2% cream [Moris Antifungal] 1 appl TP BID #1 tube 05/01/18 [Rx] Ondansetron ODT [Zofran ODT] 4 mg SL Q6HR PRN #12 tab.rapdis 05/01/18 [Rx] Potassium Chloride 20 meq PO BIDWM #3 tab.er.prt 05/01/18 [Rx] Sulfamethoxazole/Trimeth DS [Bactrim Ds] 1 each PO BID #20 tablet 05/01/18 [Rx] Allergies/Adverse Reactions: Allergy/AdvReac Type Severity Reaction Status Date / Time No Known Allergies Allergy Verified 04/25/18 22:02 Certification: Further, I certify that my clinical findings support that this patient is homebound (i.e. absences from home require considerable and taxing effort and are for medical reasons or gnosticism services or infrequently or short duration when for other reasons) because: Homebound Reason: Post-surgery restriction and or conditions limit ability to leave home Attestation: My signature below is to certify that this patient is under my care and that I, or nurse practitioner, or a physician's back office medical assistant working with me, has a [id number] encounter with this patient.
[2018-05-01 19:07] VITALS: BP 145/84
--- NOTE | 2018-05-02 14:36 | Physician Discharge Referral ---
Home Health/Hosp Referral Info Transfer to: Home Health Provider in Charge Post Discharge: PCP - Respiratory Orders Smoking Cessation: Smoking cessation has been advised. For more information, call the [place] Tobacco Quit Line at 5-072-NCRX-NOW. - Services Needed Following services are medically necessary services: Nursing, Home Health Aide - Transfer Medications Prescriptions: Ondansetron ODT [Zofran ODT] 4 mg SL Q6HR PRN #12 tab.rapdis PRN Reason: Nausea And Vomiting Amoxicillin [Amoxil] 500 mg PO TID #30 capsule Lactobacillus [Culturelle] 2 each PO DAILY #30 cap.sprink Levofloxacin [Levaquin] 750 mg PO DAILY #10 tablet Miconazole 2% cream [Moris Antifungal] 1 appl TP BID #1 tube Potassium Chloride 20 meq PO BIDWM #3 tab.er.prt Sulfamethoxazole/Trimeth DS [Bactrim Ds] 1 each PO BID #20 tablet Home Medications: Amoxicillin [Amoxil] 500 mg PO TID #30 capsule 05/01/18 [Rx] Lactobacillus [Culturelle] 2 each PO DAILY #30 cap.sprink 05/01/18 [Rx] Levofloxacin [Levaquin] 750 mg PO DAILY #10 tablet 05/01/18 [Rx] Miconazole 2% cream [Moris Antifungal] 1 appl TP BID #1 tube 05/01/18 [Rx] Ondansetron ODT [Zofran ODT] 4 mg SL Q6HR PRN #12 tab.rapdis 05/01/18 [Rx] Potassium Chloride 20 meq PO BIDWM #3 tab.er.prt 05/01/18 [Rx] Sulfamethoxazole/Trimeth DS [Bactrim Ds] 1 each PO BID #20 tablet 05/01/18 [Rx] Allergies/Adverse Reactions: Allergy/AdvReac Type Severity Reaction Status Date / Time No Known Allergies Allergy Verified 04/25/18 22:02 Certification: Further, I certify that my clinical findings support that this patient is homebound (i.e. absences from home require considerable and taxing effort and are for medical reasons or protestant services or infrequently or short duration when for other reasons) because: Homebound Reason: Patient requires assistance of a person or device to safely leave home Attestation: My signature below is to certify that this patient is under my care and that I, or nurse practitioner, or a physician's delinquent tax collector assistant working with me, has a [id number] encounter with this patient.
== END 2018-05-01 19:34 | disposition home or self-care (01) | DRG 248 ==
LOC: EMEROOARM 21:29 → 3BNU 21:29
PROVIDERS: ADMIT Internal Medicine; ATTEND Internal Medicine

== ENCOUNTER 2019-09-13 16:15 | Observation (INO) ==
[2019-09-13 18:08] LABS: Red Cell Distribution Width 19.7 % (11.5-14.5)
[2019-09-13 18:10] LABS: Basophils # 0.1 K/mcL (0.0-0.2); Basophils % 0.7 %; Eosinophils # 0.4 K/mcL (0.0-0.6); Eosinophils % 5.5 %; Hematocrit 27.1 % (35.3-44.9); Hemoglobin 7.3 g/dL (11.5-15.4); Immature Granulocytes % 0.3 % (0-4); Lymphocytes # 1.1 K/mcL (0.6-4.6); Mean Corpuscular HGB Conc 26.9 g/dL (31.6-35.5); Mean Corpuscular Hemoglobin 17.8 pg (28.0-33.3); Mean Corpuscular Volume 66.1 fL (83.0-100.0); Mean Platelet Volume 9.3 fL (9.4-12.4); Monocytes # 0.5 K/mcL (0.0-1.3); Monocytes % 7.5 %; Neutrophils # 4.6 K/mcL (1.6-8.9); Platelet Count 448 K/mcL (140-400); White Blood Count 6.7 K/mcL (4.3-11.1)
[2019-09-13 18:16] LABS: INR 1.2; Prothrombin Time 13.8 Seconds (9.4-12.1)
[2019-09-13 18:19] LABS: Activated Partial Thrombo Time 33.5 Seconds (26.0-36.0)
[2019-09-13 18:27] LABS: Alanine Aminotransferase 9 Units/L (7-52); Albumin 3.9 g/dL (3.5-5.7); Albumin/Globulin Ratio 0.9 (1.1-2.2); Alkaline Phosphatase 52 Units/L (34-104); Aspartate Amino Transferase 12 Units/L (13-39); BUN/Creatinine Ratio 15 (6-26); Bilirubin,Total 0.5 mg/dL (0.3-1.0); Blood Urea Nitrogen 12 mg/dL (6-20); Calcium 9.3 mg/dL (8.6-10.3); Carbon Dioxide 23 mEq/L (23-29); Chloride 104 mEq/L (98-107); Globulin 4.2 g/dL (2.4-3.5); Glucose 112 mg/dL (70-105); Osmolality,Calculated 283 (280-300); Potassium 3.6 mEq/L (3.5-5.1); Sodium 136 mEq/L (136-145); Total Protein 8.1 g/dL (6.4-8.9); eGFR For African Americans > 60 (> 60); eGFR For Non-African Americans > 60 (> 60)
[2019-09-13 18:30] LABS: Anisocytosis 1+ (Not Present); Hypochromasia Present (Not Present); Microcytosis Present (Not Present); Platelet Estimate Increased (Normal)
[2019-09-13 19:40] LABS: Bilirubin,Urine Negative (Negative); Blood,Urine Negative (Negative); Clarity,Urine Clear (Clear); Color,Urine Light-Yellow (Yellow); Glucose,Urine (UA) Normal (Normal); Hyaline Casts,Urine Few per lpf (None Seen); Ketones,Urine Negative (Negative); Leukocyte Esterase,Urine Negative (Negative); Mucus,Urine Few per lpf (None-Few); Nitrite,Urine Negative (Negative); Protein,Urine 70 mg/dL (Neg-Trace); RBC,Urine 0-3 per hpf (0-3); Specific Gravity,Urine 1.024 (1.010-1.025); Squamous Epithelial Cell,Urine Few per hpf (None-Few); Urobilinogen,Urine Normal (Normal)
[2019-09-13] MEDS ORDERED: *HR* Promethazine 25 MG/ML VIAL IVP PRN (20:50)
[2019-09-13] MEDS ORDERED: Naloxone 0.4 MG/ML INJ IVP PRN (20:50)
[2019-09-13] MEDS ORDERED: Acetaminophen 325 MG TABLET PO PRN (20:50)
[2019-09-13] MEDS ORDERED: Dextrose Gel 15 GM/37.5 ML TUBE PO PRN ×2 (21:02)
[2019-09-13] MEDS ORDERED: *HR* Dextrose 50 % in Water (Vial) 50 ML VIAL IVP PRN (21:02)
[2019-09-13] MEDS ORDERED: D5% in Water 1,000 ML IVC PRN (21:02)
[2019-09-13 21:42] LABS: Estimated Average Glucose 137 mg/dl
[2019-09-13] MEDS ORDERED: 0.9 % Sodium Chloride 250 ML ONE (22:05)
[2019-09-13] MEDS: Insulin LISPRO 300 UNITS/3 ML VIAL SQ SCH (22:23)
[2019-09-13] MEDS: 0.9 % Sodium Chloride 1,000 ML IVC SCH (22:23)
[2019-09-14 06:10] LABS: Eosinophils % 9.4 %; Hemoglobin 7.7 g/dL (11.5-15.4)
[2019-09-14 06:11] LABS: Basophils % 0.8 %; Eosinophils # 0.4 K/mcL (0.0-0.6); Lymphocytes # 1.1 K/mcL (0.6-4.6); Lymphocytes % 28.6 %; Mean Corpuscular HGB Conc 28.5 g/dL (31.6-35.5); Mean Corpuscular Hemoglobin 19.8 pg (28.0-33.3); Mean Corpuscular Volume 69.4 fL (83.0-100.0); Mean Platelet Volume 9.6 fL (9.4-12.4); Monocytes # 0.5 K/mcL (0.0-1.3); Monocytes % 12.5 %; Neutrophils # 1.9 K/mcL (1.6-8.9); Platelet Count 402 K/mcL (140-400); Red Blood Count 3.89 M/mcL (3.82-4.97); Red Cell Distribution Width 21.3 % (11.5-14.5); Segmented Neutrophils % 48.7 %; White Blood Count 3.9 K/mcL (4.3-11.1)
[2019-09-14 06:15] LABS: INR 1.2
[2019-09-14 06:30] LABS: BUN/Creatinine Ratio 12 (6-26); Blood Urea Nitrogen 8 mg/dL (6-20); Calcium 8.8 mg/dL (8.6-10.3); Carbon Dioxide 22 mEq/L (23-29); Chloride 109 mEq/L (98-107); Glucose 83 mg/dL (70-105); Magnesium 1.9 mg/dL (1.6-2.6); Osmolality,Calculated 287 (280-300); Phosphorous 3.8 mg/dL (2.7-4.5); Potassium 3.8 mEq/L (3.5-5.1); Sodium 140 mEq/L (136-145); eGFR For African Americans > 60 (> 60); eGFR For Non-African Americans > 60 (> 60)
[2019-09-14 06:40] LABS: Anisocytosis 2+ (Not Present); Hypochromasia Present (Not Present); Large Platelets Present (Not Present); Microcytosis Present (Not Present); Platelet Estimate Normal (Normal)
[2019-09-14] MEDS ORDERED: Potassium Chloride Elixir 20 MEQ/15 ML UDC PO SCH (08:00)
[2019-09-14] MEDS: Insulin LISPRO 300 UNITS/3 ML VIAL SQ SCH ×3 (08:50→18:03)
[2019-09-14] MEDS ORDERED: 0.9 % Sodium Chloride 250 ML ONE (10:24)
[2019-09-14] MEDS: 0.9 % Sodium Chloride 1,000 ML IVC SCH (13:43)
[2019-09-14] MEDS ORDERED: Iron Sucrose Complex 400 MG in 0.9 % Sodium Chloride 250 ML IVPB ONE (13:52)
[2019-09-14 16:08] LABS: Hematocrit 30.6 % (35.3-44.9); Hemoglobin 8.6 g/dL (11.5-15.4)
[2019-09-15 02:25] LABS: Immature Granulocytes % 0.3 % (0-4)
[2019-09-15 02:26] LABS: Basophils % 0.7 %; Eosinophils # 0.4 K/mcL (0.0-0.6); Eosinophils % 6.5 %; Hematocrit 30.3 % (35.3-44.9); Hemoglobin 8.5 g/dL (11.5-15.4); Lymphocytes # 0.9 K/mcL (0.6-4.6); Lymphocytes % 15.7 %; Mean Corpuscular HGB Conc 28.1 g/dL (31.6-35.5); Mean Corpuscular Volume 71.3 fL (83.0-100.0); Mean Platelet Volume 9.7 fL (9.4-12.4); Monocytes # 0.7 K/mcL (0.0-1.3); Monocytes % 11.4 %; Neutrophils # 3.9 K/mcL (1.6-8.9); Platelet Count 418 K/mcL (140-400); Red Blood Count 4.25 M/mcL (3.82-4.97); Red Cell Distribution Width 22.1 % (11.5-14.5); Segmented Neutrophils % 65.4 %
[2019-09-15 02:43] LABS: BUN/Creatinine Ratio 12 (6-26); Blood Urea Nitrogen 9 mg/dL (6-20); Calcium 8.6 mg/dL (8.6-10.3); Carbon Dioxide 21 mEq/L (23-29); Chloride 110 mEq/L (98-107); Glucose 109 mg/dL (70-105); Osmolality,Calculated 283 (280-300); Potassium 3.9 mEq/L (3.5-5.1); Sodium 137 mEq/L (136-145); eGFR For African Americans > 60 (> 60); eGFR For Non-African Americans > 60 (> 60)
[2019-09-15 02:48] LABS: Anisocytosis 2+ (Not Present); Macrocytosis Present (Not Present); Platelet Estimate Increased (Normal)
[2019-09-15 06:52] VITALS: BP 121/78
[2019-09-15] MEDS: Insulin LISPRO 300 UNITS/3 ML VIAL SQ SCH (08:57)
[2019-09-15] MEDS ORDERED: Potassium Chloride Elixir 20 MEQ/15 ML UDC PO SCH (09:00)
== END 2019-09-15 12:45 | disposition home or self-care (01) ==
LOC: EMEROOARM 16:15 → 3BNU 16:15 → SUATTDRO 19:35 → 3BNU 20:37
PROVIDERS: ADMIT Student in an Organized Health Care Education/Training Program; ATTEND Family Medicine

== ENCOUNTER 2021-07-26 23:20 | Inpatient (IN) ==
[2021-07-26] MEDS ORDERED: 0.9 % Sodium Chloride 1,000 ML IV ONE (23:47)
[2021-07-27 00:30] LABS: Basophils % 0.2 %; Hematocrit 46.9 % (35.3-44.9); Hemoglobin 15.9 g/dL (11.5-15.4); Immature Granulocytes % 0.2 % (0-4); Lymphocytes # 0.8 K/mcL (0.6-4.6); Lymphocytes % 12.1 %; Mean Corpuscular HGB Conc 33.9 g/dL (31.6-35.5); Mean Corpuscular Hemoglobin 27.5 pg (28.0-33.3); Mean Corpuscular Volume 81.1 fL (83.0-100.0); Mean Platelet Volume 10.8 fL (9.4-12.4); Monocytes # 1.1 K/mcL (0.0-1.3); Monocytes % 17.5 %; Neutrophils # 4.6 K/mcL (1.6-8.9); Platelet Count 394 K/mcL (140-400); Red Blood Count 5.78 M/mcL (3.82-4.97); Red Cell Distribution Width 14.2 % (11.5-14.5); White Blood Count 6.5 K/mcL (4.3-11.1)
[2021-07-27 00:30] LABS: VBG HCO3 21 mEq/L (21-27); VBG PCO2 30 mmHg (41-51); VBG PH 7.44 pH Units (7.32-7.42); VBG PO2 114 mmHg (25-50)
[2021-07-27 00:45] LABS: Alanine Aminotransferase 22 Units/L (7-52); Albumin 4.2 g/dL (3.5-5.7); Albumin/Globulin Ratio 0.9 (1.1-2.2); Alkaline Phosphatase 61 Units/L (34-104); Amylase 22 Units/L (29-103); Aspartate Amino Transferase 14 Units/L (13-39); BUN/Creatinine Ratio 20 (6-26); Bilirubin,Total 0.7 mg/dL (0.3-1.0); Blood Urea Nitrogen 18 mg/dL (6-20); Calcium 9.6 mg/dL (8.6-10.3); Carbon Dioxide 21 mEq/L (23-29); Chloride 100 mEq/L (98-107); Globulin 4.7 g/dL (2.4-3.5); Glucose 185 mg/dL (70-105); Lipase 8 Units/L (11-82); Osmolality,Calculated 285 (280-300); Potassium 3.6 mEq/L (3.5-5.1); Sodium 134 mEq/L (136-145); Total Protein 8.9 g/dL (6.4-8.9); eGFR For African Americans > 60 (> 60); eGFR For Non-African Americans > 60 (> 60)
[2021-07-27] MEDS ORDERED: Ondansetron 4 MG/2 ML VIAL IVP ONE (01:13)
[2021-07-27] MEDS ORDERED: Isovue-370 500 ML BOTTLE IVP ONE (01:26)
[2021-07-27 01:28] LABS: Bacteria,Urine Few per hpf (None-Few); Bilirubin,Urine Small (Negative); Blood,Urine Small (Negative); Clarity,Urine Turbid (Clear); Color,Urine Yellow (Yellow); Glucose,Urine (UA) Normal (Normal); Granular Casts,Urine Moderate per lpf (None Seen); Hyaline Casts,Urine Many per lpf (None Seen); Ketones,Urine 60 mg/dL (Negative); Leukocyte Esterase,Urine Negative (Negative); Mucus,Urine Few per lpf (None-Few); Nitrite,Urine Negative (Negative); Protein,Urine >=600 mg/dL (Neg-Trace); Specific Gravity,Urine > 1.030 (1.010-1.025); Squamous Epithelial Cell,Urine Moderate per hpf (None-Few); WBC,Urine 0-3 per hpf (0-3)
[2021-07-27 01:44] LABS: Influenza A PCR Negative (Negative); Influenza B PCR Negative (Negative); Resp. Syncytial Virus PCR Negative (Negative)
[2021-07-27 01:45] LABS: SARS-CoV-2 by PCR (In House) Negative (Negative)
[2021-07-27] MEDS ORDERED: Melatonin 3 MG TABLET PO PRN (03:35)
[2021-07-27] MEDS ORDERED: Ondansetron 4 MG/2 ML VIAL IVP PRN (03:35)
[2021-07-27] MEDS ORDERED: Acetaminophen 325 MG TABLET PO PRN (03:35)
[2021-07-27] MEDS ORDERED: Naloxone 0.4 MG/ML INJ IVP PRN (03:35)
[2021-07-27] MEDS ORDERED: D5% in Water 1,000 ML IVC PRN (03:45)
[2021-07-27] MEDS ORDERED: Dextrose 4 GM Chewable Tablets PO PRN ×2 (03:45)
[2021-07-27] MEDS ORDERED: *HR* Dextrose 50 % in Water (Syg) 50 ML SYRINGE IVP PRN (03:45)
[2021-07-27] MEDS ORDERED: MetroNIDAZOLE 500 MG/100 ML 500 MG/100 ML BAG IVPB ONE (03:47)
[2021-07-27] MEDS: Ringers Solution, Lactated 1,000 ML IVC SCH ×2 (05:27→16:30)
[2021-07-27] MEDS: MethylPREDNISolone 40 MG/ML VIAL IVP SCH ×3 (05:38→20:18)
[2021-07-27] MEDS ORDERED: *HR* Promethazine 25 MG/ML VIAL IM PRN (05:43)
[2021-07-27 07:39] LABS: Hematocrit 45.9 % (35.3-44.9); Hemoglobin 14.8 g/dL (11.5-15.4); Lymphocytes # 1.1 K/mcL (0.6-4.6); Mean Corpuscular HGB Conc 32.2 g/dL (31.6-35.5); Mean Corpuscular Hemoglobin 27.6 pg (28.0-33.3); Mean Corpuscular Volume 85.5 fL (83.0-100.0); Mean Platelet Volume 11.6 fL (9.4-12.4); Platelet Count 299 K/mcL (140-400); Red Blood Count 5.37 M/mcL (3.82-4.97); Red Cell Distribution Width 14.2 % (11.5-14.5); White Blood Count 5.4 K/mcL (4.3-11.1)
[2021-07-27 07:45] LABS: INR 1.3; Prothrombin Time 14.1 Seconds (9.4-12.1)
[2021-07-27 07:48] LABS: Activated Partial Thrombo Time 32.7 Seconds (26.0-36.0)
[2021-07-27] MEDS: *HR* OxyCODONE Immed Rel 5 MG TABLET PO PRN (08:12)
[2021-07-27] MEDS: *HR* Enoxaparin 40 MG/0.4 ML SYRINGE SQ SCH ×2 (08:13→18:12)
[2021-07-27 08:51] LABS: Alanine Aminotransferase 17 Units/L (7-52); Albumin 4.1 g/dL (3.5-5.7); Alkaline Phosphatase 55 Units/L (34-104); Aspartate Amino Transferase 14 Units/L (13-39); BUN/Creatinine Ratio 18 (6-26); Bilirubin,Total 0.6 mg/dL (0.3-1.0); Blood Urea Nitrogen 15 mg/dL (6-20); Calcium 9.1 mg/dL (8.6-10.3); Carbon Dioxide 18 mEq/L (23-29); Chloride 100 mEq/L (98-107); Globulin 4.1 g/dL (2.4-3.5); Glucose 138 mg/dL (70-105); Osmolality,Calculated 281 (280-300); Phosphorous 2.8 mg/dL (2.7-4.5); Potassium 3.3 mEq/L (3.5-5.1); Sodium 134 mEq/L (136-145); Total Protein 8.2 g/dL (6.4-8.9); eGFR For African Americans > 60 (> 60); eGFR For Non-African Americans > 60 (> 60)
[2021-07-27 09:11] LABS: Monocytes # 0.8 K/mcL (0.0-1.3); Neutrophils # 3.6 K/mcL (1.6-8.9); Platelet Estimate Normal (Normal)
[2021-07-27] MEDS: MetroNIDAZOLE 500 MG/100 ML 500 MG/100 ML BAG IVPB SCH ×2 (12:26→20:18)
[2021-07-27] MEDS ORDERED: Tetracaine/Benzocaine/Butamben 1 SPRAY AEROSOL MM ONE (12:46)
[2021-07-28] MEDS: *HR* OxyCODONE Immed Rel 5 MG TABLET PO PRN (04:55)
[2021-07-28] MEDS: MetroNIDAZOLE 500 MG/100 ML 500 MG/100 ML BAG IVPB SCH ×3 (04:55→20:41)
[2021-07-28] MEDS: MethylPREDNISolone 40 MG/ML VIAL IVP SCH ×3 (04:55→20:41)
[2021-07-28] MEDS: *HR* Enoxaparin 40 MG/0.4 ML SYRINGE SQ SCH ×2 (04:56→16:58)
[2021-07-28] MEDS ORDERED: SODIUM CHLORIDE/NAHCO3/KCL/PEG 4,000 ML SOLN.RECON PO ONE (16:15)
[2021-07-29] MEDS: *HR* Enoxaparin 40 MG/0.4 ML SYRINGE SQ SCH (05:14)
[2021-07-29] MEDS: MethylPREDNISolone 40 MG/ML VIAL IVP SCH ×2 (05:14→14:19)
[2021-07-29] MEDS: MetroNIDAZOLE 500 MG/100 ML 500 MG/100 ML BAG IVPB SCH ×2 (05:15→14:19)
[2021-07-29 06:16] LABS: Basophils % 0.1 %; Hematocrit 41.7 % (35.3-44.9); Hemoglobin 13.5 g/dL (11.5-15.4); Immature Granulocytes % 0.7 % (0-4); Lymphocytes # 0.8 K/mcL (0.6-4.6); Mean Corpuscular HGB Conc 32.4 g/dL (31.6-35.5); Mean Corpuscular Hemoglobin 27.6 pg (28.0-33.3); Mean Corpuscular Volume 85.3 fL (83.0-100.0); Mean Platelet Volume 11.6 fL (9.4-12.4); Monocytes # 0.8 K/mcL (0.0-1.3); Monocytes % 9.2 %; Platelet Count 292 K/mcL (140-400); Red Blood Count 4.89 M/mcL (3.82-4.97)
[2021-07-29 06:20] LABS: Neutrophils # 6.6 K/mcL (1.6-8.9); White Blood Count 8.2 K/mcL (4.3-11.1)
[2021-07-29 06:24] LABS: BUN/Creatinine Ratio 16 (6-26); Blood Urea Nitrogen 12 mg/dL (6-20); Calcium 9.1 mg/dL (8.6-10.3); Carbon Dioxide 24 mEq/L (23-29); Chloride 106 mEq/L (98-107); Glucose 196 mg/dL (70-105); Osmolality,Calculated 293 (280-300); Potassium 3.9 mEq/L (3.5-5.1); Sodium 139 mEq/L (136-145); eGFR For African Americans > 60 (> 60); eGFR For Non-African Americans > 60 (> 60)
[2021-07-29] MEDS ORDERED: Simethicone 40 MG/0.6 ML MLS IR ONE (12:51)
[2021-07-29] MEDS ORDERED: Ringers Solution, Lactated 1,000 ML IVC SCH ×2 (13:00→20:44)
[2021-07-29] MEDS ORDERED: Lidocaine -MPF 2% 2 ML VIAL ONE ×2 (13:21→16:29)
[2021-07-29] MEDS ORDERED: Piperacillin/Tazobactam 3.375 GM in 0.9 % Sodium Chloride Mini Bag 100 ML IVPB SCH (16:17)
[2021-07-29] MEDS ORDERED: *HR* Midazolam HCl 2 MG/2 ML VIAL ONE (16:28)
[2021-07-29] MEDS ORDERED: *HR* FentaNYL (PF) 100 MCG/2 ML VIAL ONE (16:28)
[2021-07-29] MEDS ORDERED: *HR* Propofol 200 MG/20 ML VIAL IVP ONE (16:28)
[2021-07-29] MEDS ORDERED: *HR* Succinylcholine 200 MG/10 ML VIAL IVP ONE (16:29)
[2021-07-29] MEDS ORDERED: *HR* Rocuronium Bromide 50 MG/5 ML VIAL ONE ×2 (16:29→18:14)
[2021-07-29] MEDS ORDERED: *HR* HYDROmorphone PF 0.5 MG/0.5 ML SYRINGE IVP PRN (17:07)
[2021-07-29] MEDS ORDERED: Ondansetron 4 MG/2 ML VIAL IVP PRN ×2 (17:07→20:44)
[2021-07-29] MEDS ORDERED: ceFAZolin 3,000 MG in Water for inj. (sterile) 30 ML IVP ONE (17:45)
[2021-07-29] MEDS ORDERED: Ketamine HCL *QUVA* 50mg (1mL) SYRINGE ONE ×2 (17:49→18:16)
[2021-07-29] MEDS ORDERED: *HR* Magnesium Sulfate 1 GM/2 ML VIAL ONE (17:50)
[2021-07-29] MEDS ORDERED: Ondansetron 4 MG/2 ML VIAL ONE (17:50)
[2021-07-29] MEDS: ceFAZolin 1,000 MG in Water for inj. (sterile) 10 ML IVP SCH (18:14)
[2021-07-29] MEDS ORDERED: Acetaminophen IV 1,000 MG/100 ML BAG IVPB ONE (19:12)
[2021-07-29] MEDS: Acetaminophen IV 1,000 MG/100 ML BAG IVPB ONE ×2 (19:16→21:35)
[2021-07-29] MEDS ORDERED: *HR* HYDROMORPHONE 2 MG/ML VIAL ONE (19:37)
[2021-07-29] MEDS ORDERED: Dextrose 4 GM Chewable Tablets PO PRN ×2 (20:44)
[2021-07-29] MEDS ORDERED: *HR* OxyCODONE Immed Rel 5 MG TABLET PO PRN (20:44)
[2021-07-29] MEDS ORDERED: *HR* Promethazine 25 MG/ML VIAL IM PRN (20:44)
[2021-07-29] MEDS ORDERED: Acetaminophen 325 MG TABLET PO PRN (20:44)
[2021-07-29] MEDS ORDERED: Naloxone 0.4 MG/ML INJ IVP PRN (20:44)
[2021-07-29] MEDS ORDERED: D5% in Water 1,000 ML IVC PRN (20:44)
[2021-07-29] MEDS ORDERED: *HR* Dextrose 50 % in Water (Syg) 50 ML SYRINGE IVP PRN (20:44)
[2021-07-30] MEDS: Piperacillin/Tazobactam 3.375 GM in 0.9 % Sodium Chloride Mini Bag 100 ML IVPB SCH ×3 (01:49→16:25)
[2021-07-30] MEDS: Melatonin 3 MG TABLET PO PRN (03:45)
[2021-07-30] MEDS ORDERED: MethylPREDNISolone 40 MG/ML VIAL IVP SCH (04:00)
[2021-07-30] MEDS ORDERED: *HR* OxyCODONE Immed Rel 5 MG TABLET PO ONE (04:00)
[2021-07-30] MEDS ORDERED: MetroNIDAZOLE 500 MG/100 ML 500 MG/100 ML BAG IVPB SCH (04:00)
[2021-07-30] MEDS: *HR* Enoxaparin 40 MG/0.4 ML SYRINGE SQ SCH ×2 (05:46→16:26)
[2021-07-30] MEDS: Ketorolac 30 MG/ML VIAL IVP SCH ×3 (08:26→18:09)
[2021-07-30] MEDS: Gabapentin 100 MG CAPSULE PO SCH ×3 (08:27→21:59)
[2021-07-30] MEDS: Ringers Solution, Lactated 1,000 ML IVC SCH ×2 (08:27→16:24)
[2021-07-30] MEDS: methocarbamoL 500 MG TABLET PO SCH ×2 (08:27→16:26)
[2021-07-30] MEDS: MethylPREDNISolone 40 MG/ML VIAL IVP SCH (08:27)
[2021-07-30] MEDS ORDERED: Morphine PCA 30 MG/ 30 ML 30 ML PCA.VIAL IVC PRN (08:29)
[2021-07-30] MEDS: Acetaminophen IV 1,000 MG/100 ML BAG IVPB SCH ×2 (14:39→18:10)
[2021-07-31] MEDS: Piperacillin/Tazobactam 3.375 GM in 0.9 % Sodium Chloride Mini Bag 100 ML IVPB SCH ×3 (00:10→16:23)
[2021-07-31] MEDS: Acetaminophen IV 1,000 MG/100 ML BAG IVPB SCH ×4 (00:10→17:05)
[2021-07-31] MEDS: Melatonin 3 MG TABLET PO PRN ×2 (00:11→20:05)
[2021-07-31] MEDS: Ketorolac 30 MG/ML VIAL IVP SCH ×4 (00:11→17:05)
[2021-07-31] MEDS: methocarbamoL 500 MG TABLET PO SCH ×3 (00:11→16:22)
[2021-07-31] MEDS: Ringers Solution, Lactated 1,000 ML IVC SCH (00:11)
[2021-07-31 02:16] LABS: Hematocrit 34.7 % (35.3-44.9); Mean Corpuscular HGB Conc 32.9 g/dL (31.6-35.5); Mean Corpuscular Hemoglobin 28.1 pg (28.0-33.3); Mean Corpuscular Volume 85.7 fL (83.0-100.0); Mean Platelet Volume 11.1 fL (9.4-12.4); Platelet Count 248 K/mcL (140-400); Red Blood Count 4.05 M/mcL (3.82-4.97); Red Cell Distribution Width 13.8 % (11.5-14.5); White Blood Count 9.4 K/mcL (4.3-11.1)
[2021-07-31 02:18] LABS: Hemoglobin 11.4 g/dL (11.5-15.4)
[2021-07-31 02:27] LABS: Alanine Aminotransferase 18 Units/L (7-52); Albumin 2.7 g/dL (3.5-5.7); Albumin/Globulin Ratio 1.1 (1.1-2.2); Alkaline Phosphatase 31 Units/L (34-104); Aspartate Amino Transferase 15 Units/L (13-39); BUN/Creatinine Ratio 16 (6-26); Bilirubin,Direct 0.1 mg/dL (0.0-0.2); Bilirubin,Indirect 0.4 mg/dL (0.0-1.0); Bilirubin,Total 0.5 mg/dL (0.3-1.0); Blood Urea Nitrogen 12 mg/dL (6-20); Calcium 7.9 mg/dL (8.6-10.3); Carbon Dioxide 28 mEq/L (23-29); Chloride 106 mEq/L (98-107); Globulin 2.4 g/dL (2.4-3.5); Glucose 143 mg/dL (70-105); Magnesium 2.2 mg/dL (1.6-2.6); Osmolality,Calculated 288 (280-300); Phosphorous 2.7 mg/dL (2.7-4.5); Potassium 3.6 mEq/L (3.5-5.1); Sodium 138 mEq/L (136-145); Total Protein 5.1 g/dL (6.4-8.9); eGFR For African Americans > 60 (> 60); eGFR For Non-African Americans > 60 (> 60)
[2021-07-31] MEDS: *HR* Enoxaparin 40 MG/0.4 ML SYRINGE SQ SCH ×2 (06:11→17:06)
[2021-07-31] MEDS: Gabapentin 100 MG CAPSULE PO SCH ×3 (08:32→20:05)
[2021-07-31] MEDS: MethylPREDNISolone 40 MG/ML VIAL IVP SCH (08:32)
[2021-07-31] MEDS ORDERED: Potassium Chloride Elixir 20 MEQ/15 ML UDC PO ONE (12:40)
[2021-08-01] MEDS: Piperacillin/Tazobactam 3.375 GM in 0.9 % Sodium Chloride Mini Bag 100 ML IVPB SCH ×4 (00:09→23:48)
[2021-08-01] MEDS: methocarbamoL 500 MG TABLET PO SCH ×4 (00:10→23:41)
[2021-08-01] MEDS: Ketorolac 30 MG/ML VIAL IVP SCH ×2 (00:10→06:08)
[2021-08-01] MEDS: Acetaminophen IV 1,000 MG/100 ML BAG IVPB SCH (04:00)
[2021-08-01] MEDS: *HR* Enoxaparin 40 MG/0.4 ML SYRINGE SQ SCH ×2 (06:08→17:20)
[2021-08-01] MEDS ORDERED: Ringers Solution, Lactated 1,000 ML IVC SCH (08:15)
[2021-08-01] MEDS: Gabapentin 100 MG CAPSULE PO SCH ×3 (09:35→21:30)
[2021-08-01] MEDS: MethylPREDNISolone 40 MG/ML VIAL IVP SCH (09:39)
[2021-08-01] MEDS ORDERED: Acetaminophen IV 1,000 MG/100 ML BAG IVPB SCH (10:00)
[2021-08-01] MEDS: Insulin LISPRO 300 UNITS/3 ML VIAL SUBQ SCH ×3 (10:41→17:22)
[2021-08-01] MEDS: MetroNIDAZOLE 500 MG/100 ML 500 MG/100 ML BAG IVPB SCH (10:43)
[2021-08-01] MEDS: Acetaminophen 325 MG TABLET PO SCH (17:21)
[2021-08-02] MEDS: Acetaminophen 325 MG TABLET PO SCH ×2 (00:24→09:41)
[2021-08-02 05:18] LABS: Hematocrit 34.9 % (35.3-44.9); Hemoglobin 11.3 g/dL (11.5-15.4); Mean Corpuscular HGB Conc 32.4 g/dL (31.6-35.5); Mean Corpuscular Hemoglobin 27.3 pg (28.0-33.3); Mean Corpuscular Volume 84.3 fL (83.0-100.0); Mean Platelet Volume 11.5 fL (9.4-12.4); Platelet Count 253 K/mcL (140-400); Red Blood Count 4.14 M/mcL (3.82-4.97); Red Cell Distribution Width 13.7 % (11.5-14.5); White Blood Count 14.1 K/mcL (4.3-11.1)
[2021-08-02 05:43] LABS: Alanine Aminotransferase 12 Units/L (7-52); Albumin/Globulin Ratio 1.1 (1.1-2.2); Alkaline Phosphatase 32 Units/L (34-104); Aspartate Amino Transferase 14 Units/L (13-39); BUN/Creatinine Ratio 15 (6-26); Bilirubin,Direct 0.1 mg/dL (0.0-0.2); Bilirubin,Indirect 0.4 mg/dL (0.0-1.0); Bilirubin,Total 0.5 mg/dL (0.3-1.0); Blood Urea Nitrogen 10 mg/dL (6-20); Calcium 8.3 mg/dL (8.6-10.3); Carbon Dioxide 25 mEq/L (23-29); Chloride 106 mEq/L (98-107); Globulin 2.8 g/dL (2.4-3.5); Glucose 115 mg/dL (70-105); Magnesium 1.8 mg/dL (1.6-2.6); Osmolality,Calculated 284 (280-300); Phosphorous 2.5 mg/dL (2.7-4.5); Potassium 3.8 mEq/L (3.5-5.1); Sodium 137 mEq/L (136-145); Total Protein 5.8 g/dL (6.4-8.9); eGFR For African Americans > 60 (> 60); eGFR For Non-African Americans > 60 (> 60)
[2021-08-02] MEDS: *HR* Enoxaparin 40 MG/0.4 ML SYRINGE SQ SCH (06:32)
[2021-08-02] MEDS: Insulin LISPRO 300 UNITS/3 ML VIAL SUBQ SCH (07:12)
[2021-08-02] MEDS: Gabapentin 100 MG CAPSULE PO SCH (09:41)
[2021-08-02] MEDS: methocarbamoL 500 MG TABLET PO SCH (09:41)
[2021-08-02] MEDS: Piperacillin/Tazobactam 3.375 GM in 0.9 % Sodium Chloride Mini Bag 100 ML IVPB SCH (09:41)
[2021-08-02 15:05] VITALS: BP 141/85; PULSE 97; TEMP 98.1; O2SAT 99
== END 2021-08-02 18:00 | disposition home health service (06) | DRG 230 ==
LOC: 3NENU 23:20 → EMEROOARM 23:20 → SUATTDRO 07-27 03:43 → 3NENU 07-27 05:14 → SUATTDRO 07-27 16:11
PROVIDERS: ADMIT Internal Medicine; ATTEND Internal Medicine

== ENCOUNTER 2021-09-01 17:17 | Inpatient (IN) ==
[2021-09-01] MEDS ORDERED: Ondansetron 4 MG/2 ML VIAL IVP ONE (18:30)
[2021-09-01] MEDS ORDERED: 0.9 % Sodium Chloride 1,000 ML IVC ONE (18:30)
[2021-09-01] MEDS ORDERED: Ketorolac 30 MG/ML VIAL IVP STA (18:30)
[2021-09-01 18:53] LABS: Basophils % 0.3 %; Eosinophils % 0.3 %; Hematocrit 37.5 % (35.3-44.9); Hemoglobin 11.7 g/dL (11.5-15.4); Immature Granulocytes % 0.8 % (0-4); Immature Platelets 5.8 % (1.1-6.1); Lymphocytes # 1.2 K/mcL (0.6-4.6); Mean Corpuscular HGB Conc 31.2 g/dL (31.6-35.5); Mean Corpuscular Volume 83.3 fL (83.0-100.0); Mean Platelet Volume 10.8 fL (9.4-12.4); Monocytes # 0.8 K/mcL (0.0-1.3); Monocytes % 6.5 %; Neutrophils # 10.1 K/mcL (1.6-8.9); Platelet Count 385 K/mcL (140-400); Red Cell Distribution Width 14.3 % (11.5-14.5); Segmented Neutrophils % 82.1 %; White Blood Count 12.3 K/mcL (4.3-11.1)
[2021-09-01 19:13] LABS: Platelet Estimate Normal (Normal)
[2021-09-01 19:24] LABS: BUN/Creatinine Ratio 8 (6-26); Blood Urea Nitrogen 7 mg/dL (6-20); Carbon Dioxide 21 mEq/L (23-29); Chloride 96 mEq/L (98-107); Glucose 103 mg/dL (70-105); Osmolality,Calculated 270 (280-300); Potassium 4.8 mEq/L (3.5-5.1); Sodium 131 mEq/L (136-145); Troponin I < 0.03 ng/mL (< 0.04); eGFR For African Americans > 60 (> 60); eGFR For Non-African Americans > 60 (> 60)
[2021-09-01 19:36] LABS: Calcium 9.5 mg/dL (8.6-10.3)
[2021-09-01] MEDS ORDERED: Iopamidol - 370 500 ML MLS IVP ONE (19:43)
[2021-09-01 20:38] LABS: Influenza A PCR Negative (Negative); Influenza B PCR Negative (Negative); Resp. Syncytial Virus PCR Negative (Negative)
[2021-09-01 20:41] LABS: SARS-CoV-2 by PCR (In House) Negative (Negative)
[2021-09-01 20:52] LABS: Bacteria,Urine Few per hpf (None-Few); Bilirubin,Urine Negative (Negative); Blood,Urine Negative (Negative); Clarity,Urine Turbid (Clear); Color,Urine Yellow (Yellow); Glucose,Urine (UA) Normal (Normal); Ketones,Urine Trace mg/dL (Negative); Leukocyte Esterase,Urine Negative (Negative); Mucus,Urine Few per lpf (None-Few); Nitrite,Urine Negative (Negative); PH,Urine 6.5 pH Units (5.0-8.0); Protein,Urine >=300 mg/dL (Neg-Trace); RBC,Urine 0-3 per hpf (0-3); Specific Gravity,Urine > 1.030 (1.010-1.025); Squamous Epithelial Cell,Urine Moderate per hpf (None-Few); Urobilinogen,Urine Normal (Normal)
[2021-09-01] MEDS ORDERED: Vancomycin 2,000 MG/520 ML IV.SOLN IVPB ONE (20:59)
[2021-09-01] MEDS ORDERED: Piperacillin/Tazobactam 3.375 GM in 0.9 % Sodium Chloride Mini Bag 100 ML IVPB ONE (20:59)
[2021-09-01] MEDS ORDERED: Fluconazole 400 MG/200 ML 400 MG/200 ML BAG IVPB SCH (21:30)
[2021-09-01] MEDS ORDERED: Naloxone 0.4 MG/ML INJ IVP PRN (22:27)
[2021-09-01] MEDS ORDERED: Melatonin 3 MG TABLET PO PRN (22:27)
[2021-09-01] MEDS ORDERED: Dextrose Gel 15 GM/37.5 ML TUBE PO PRN ×2 (23:08)
[2021-09-01] MEDS ORDERED: *HR* Dextrose 50 % in Water (Syg) 50 ML SYRINGE IVP PRN (23:08)
[2021-09-01] MEDS ORDERED: D5% in Water 1,000 ML IVC PRN (23:08)
[2021-09-01] MEDS ORDERED: Saliva Stimulant 44.3ml BOTTLE PO PRN (23:09)
[2021-09-02] MEDS: Fluconazole 200 MG/100 ML 200 MG/100 ML BAG IVPB SCH ×4 (01:00→04:09)
[2021-09-02 01:32] LABS: Basophils % 0.3 %; Eosinophils # 0.1 K/mcL (0.0-0.6); Eosinophils % 0.8 %; Hematocrit 29.3 % (35.3-44.9); Immature Granulocytes % 1.1 % (0-4); Lymphocytes # 1.3 K/mcL (0.6-4.6); Lymphocytes % 13.8 %; Mean Corpuscular HGB Conc 32.1 g/dL (31.6-35.5); Mean Corpuscular Hemoglobin 26.2 pg (28.0-33.3); Mean Corpuscular Volume 81.6 fL (83.0-100.0); Mean Platelet Volume 10.3 fL (9.4-12.4); Monocytes # 0.9 K/mcL (0.0-1.3); Monocytes % 9.6 %; Neutrophils # 7.2 K/mcL (1.6-8.9); Platelet Count 360 K/mcL (140-400); Red Blood Count 3.59 M/mcL (3.82-4.97); Red Cell Distribution Width 14.4 % (11.5-14.5); Segmented Neutrophils % 74.4 %; White Blood Count 9.7 K/mcL (4.3-11.1)
[2021-09-02 01:37] LABS: Hemoglobin 9.4 g/dL (11.5-15.4)
[2021-09-02 01:42] LABS: Estimated Average Glucose 128 mg/dl; Hemoglobin A1C 6.1 %
[2021-09-02 01:43] LABS: INR 1.6; Prothrombin Time 17.4 Seconds (9.4-12.1)
[2021-09-02 01:46] LABS: Activated Partial Thrombo Time 30.4 Seconds (26.0-36.0)
[2021-09-02 01:55] LABS: Alanine Aminotransferase 8 Units/L (7-52); Albumin 3.1 g/dL (3.5-5.7); Albumin/Globulin Ratio 0.8 (1.1-2.2); Alkaline Phosphatase 48 Units/L (34-104); Aspartate Amino Transferase 12 Units/L (13-39); BUN/Creatinine Ratio 9 (6-26); Bilirubin,Total 0.4 mg/dL (0.3-1.0); Blood Urea Nitrogen 7 mg/dL (6-20); Calcium 8.6 mg/dL (8.6-10.3); Carbon Dioxide 22 mEq/L (23-29); Chloride 101 mEq/L (98-107); Globulin 4.1 g/dL (2.4-3.5); Glucose 83 mg/dL (70-105); Magnesium 1.9 mg/dL (1.6-2.6); Osmolality,Calculated 275 (280-300); Phosphorous 3.9 mg/dL (2.7-4.5); Potassium 3.3 mEq/L (3.5-5.1); Sodium 134 mEq/L (136-145); Total Protein 7.2 g/dL (6.4-8.9); eGFR For African Americans > 60 (> 60); eGFR For Non-African Americans > 60 (> 60)
[2021-09-02] MEDS ORDERED: 0.9 % Sodium Chloride 1,000 ML IVC SCH (03:45)
[2021-09-02] MEDS ORDERED: Piperacillin/Tazobactam 3.375 GM in 0.9 % Sodium Chloride Mini Bag 100 ML IVPB SCH (04:00)
[2021-09-02] MEDS: Lactobacillus 1 EACH CAP.SPRINK PO SCH ×2 (07:49→21:25)
[2021-09-02] MEDS: Vancomycin 1,500 MG/265 ML IV.SOLN IVPB SCH ×2 (07:49→21:25)
[2021-09-02 08:03] LABS: Hematocrit 31.9 % (35.3-44.9); Hemoglobin 10.2 g/dL (11.5-15.4)
[2021-09-02 08:43] LABS: % Iron Saturation 8 % (15-50); Ferritin 207 ng/mL (10-120); Iron 19 mcg/dL (50-170); Transferrin 177 mg/dL (203-362)
[2021-09-02 08:47] LABS: Folate 13.4 ng/mL (3.0-16.0)
[2021-09-02] MEDS ORDERED: Vancomycin 1,750 MG/517.5 ML IV.SOLN IVPB SCH (09:00)
[2021-09-02] MEDS ORDERED: MethylPREDNISolone 40 MG/ML VIAL IVP SCH (09:00)
[2021-09-02] MEDS ORDERED: Chloraseptic Spray 177 ML BOTTLE MM PRN (11:33)
[2021-09-02] MEDS: 0.9 % Sodium Chloride w KCl 40 MEQ/1,000 ML MLS IVC SCH ×2 (11:36→17:28)
[2021-09-02] MEDS ORDERED: Potassium Chloride Elixir 20 MEQ/15 ML UDC PO ONE (11:40)
[2021-09-02] MEDS: Iron Sucrose Complex 250 MG in 0.9 % Sodium Chloride 250 ML IVPB SCH (11:43)
[2021-09-02] MEDS ORDERED: *HR* Midazolam HCl 2 MG/2 ML VIAL ONE (13:14)
[2021-09-02] MEDS ORDERED: *HR* FentaNYL (PF) 100 MCG/2 ML VIAL ONE (13:14)
[2021-09-02] MEDS ORDERED: *HR* FentaNYL (PF) 100 MCG/2 ML VIAL IVP ONE (13:49)
[2021-09-02] MEDS ORDERED: *HR* Midazolam HCl 2 MG/2 ML VIAL IVP ONE (13:49)
[2021-09-02] MEDS: Piperacillin/Tazobactam 3.375 GM in 0.9 % Sodium Chloride Mini Bag 100 ML IVPB SCH (17:27)
[2021-09-02] MEDS: Acetaminophen 325 MG TABLET PO PRN (17:31)
[2021-09-02 23:37] LABS: Appearance of Body Fluid Hazy (Clear); Volume of Body Fluid 50 mL
[2021-09-03] MEDS: Piperacillin/Tazobactam 3.375 GM in 0.9 % Sodium Chloride Mini Bag 100 ML IVPB SCH ×3 (00:02→17:17)
[2021-09-03] MEDS: 0.9 % Sodium Chloride w KCl 40 MEQ/1,000 ML MLS IVC SCH ×2 (01:42→09:45)
[2021-09-03] MEDS: Acetaminophen 325 MG TABLET PO PRN ×2 (05:59→17:21)
[2021-09-03] MEDS: Lactobacillus 1 EACH CAP.SPRINK PO SCH ×2 (08:05→21:27)
[2021-09-03] MEDS: Vancomycin 1,500 MG/265 ML IV.SOLN IVPB SCH ×2 (08:06→21:26)
[2021-09-03 08:13] LABS: Basophils % 0.3 %; Eosinophils # 0.1 K/mcL (0.0-0.6); Eosinophils % 0.4 %; Hematocrit 30.6 % (35.3-44.9); Hemoglobin 9.5 g/dL (11.5-15.4); Lymphocytes # 0.9 K/mcL (0.6-4.6); Lymphocytes % 7.7 %; Mean Corpuscular Hemoglobin 25.7 pg (28.0-33.3); Mean Corpuscular Volume 82.9 fL (83.0-100.0); Mean Platelet Volume 10.4 fL (9.4-12.4); Monocytes # 0.8 K/mcL (0.0-1.3); Monocytes % 6.4 %; Neutrophils # 10.1 K/mcL (1.6-8.9); Platelet Count 393 K/mcL (140-400); Red Blood Count 3.69 M/mcL (3.82-4.97); Red Cell Distribution Width 14.6 % (11.5-14.5); Segmented Neutrophils % 84.2 %; White Blood Count 11.9 K/mcL (4.3-11.1)
[2021-09-03 09:14] LABS: BUN/Creatinine Ratio 4 (6-26); Blood Urea Nitrogen 3 mg/dL (6-20); Calcium 8.4 mg/dL (8.6-10.3); Carbon Dioxide 22 mEq/L (23-29); Chloride 107 mEq/L (98-107); Glucose 105 mg/dL (70-105); Osmolality,Calculated 281 (280-300); Potassium 4.2 mEq/L (3.5-5.1); Sodium 137 mEq/L (136-145); eGFR For African Americans > 60 (> 60); eGFR For Non-African Americans > 60 (> 60)
[2021-09-03] MEDS: Iron Sucrose Complex 250 MG in 0.9 % Sodium Chloride 250 ML IVPB SCH (09:46)
[2021-09-03] MEDS: 0.9 % Sodium Chloride 1,000 ML IVC SCH ×2 (12:38→21:27)
[2021-09-03] MEDS ORDERED: *HR* Metoprolol 5 MG/5 ML VIAL IVP PRN (17:56)
[2021-09-03] MEDS: *HR* OxyCODONE Immed Rel 5 MG TABLET PO PRN (21:50)
[2021-09-04] MEDS: *HR* OxyCODONE Immed Rel 5 MG TABLET PO PRN ×2 (07:42→20:30)
[2021-09-04] MEDS: Lactobacillus 1 EACH CAP.SPRINK PO SCH ×2 (07:42→20:30)
[2021-09-04] MEDS: 0.9 % Sodium Chloride 1,000 ML IVC SCH (07:43)
[2021-09-04] MEDS: Piperacillin/Tazobactam 3.375 GM in 0.9 % Sodium Chloride Mini Bag 100 ML IVPB SCH ×3 (07:43→16:14)
[2021-09-04] MEDS: Vancomycin 1,500 MG/265 ML IV.SOLN IVPB SCH ×2 (07:44→20:30)
[2021-09-04 08:10] LABS: Basophils % 0.4 %; Eosinophils # 0.2 K/mcL (0.0-0.6); Eosinophils % 1.7 %; Hematocrit 29.1 % (35.3-44.9); Hemoglobin 9.1 g/dL (11.5-15.4); Immature Granulocytes % 1.9 % (0-4); Lymphocytes # 1.2 K/mcL (0.6-4.6); Lymphocytes % 10.9 %; Mean Corpuscular HGB Conc 31.3 g/dL (31.6-35.5); Mean Corpuscular Hemoglobin 26.1 pg (28.0-33.3); Mean Corpuscular Volume 83.6 fL (83.0-100.0); Mean Platelet Volume 10.1 fL (9.4-12.4); Monocytes # 0.7 K/mcL (0.0-1.3); Monocytes % 6.1 %; Neutrophils # 8.8 K/mcL (1.6-8.9); Platelet Count 376 K/mcL (140-400); Red Blood Count 3.48 M/mcL (3.82-4.97); Red Cell Distribution Width 14.7 % (11.5-14.5); White Blood Count 11.1 K/mcL (4.3-11.1)
[2021-09-04 08:29] LABS: BUN/Creatinine Ratio 5 (6-26); Blood Urea Nitrogen 3 mg/dL (6-20); Calcium 8.5 mg/dL (8.6-10.3); Carbon Dioxide 22 mEq/L (23-29); Chloride 109 mEq/L (98-107); Glucose 104 mg/dL (70-105); Magnesium 1.7 mg/dL (1.6-2.6); Osmolality,Calculated 287 (280-300); Potassium 3.9 mEq/L (3.5-5.1); Sodium 140 mEq/L (136-145); eGFR For African Americans > 60 (> 60); eGFR For Non-African Americans > 60 (> 60)
[2021-09-04] MEDS: *HR* Enoxaparin 40 MG/0.4 ML SYRINGE SQ SCH (10:42)
[2021-09-04] MEDS: Iron Sucrose Complex 250 MG in 0.9 % Sodium Chloride 250 ML IVPB SCH (12:30)
[2021-09-04] MEDS: Acetaminophen 325 MG TABLET PO PRN (14:32)
[2021-09-05] MEDS: *HR* Enoxaparin 40 MG/0.4 ML SYRINGE SQ SCH (06:00)
[2021-09-05] MEDS: Piperacillin/Tazobactam 3.375 GM in 0.9 % Sodium Chloride Mini Bag 100 ML IVPB SCH ×4 (07:57→23:07)
[2021-09-05] MEDS: Lactobacillus 1 EACH CAP.SPRINK PO SCH ×2 (08:01→21:23)
[2021-09-05] MEDS: Vancomycin 1,500 MG/265 ML IV.SOLN IVPB SCH ×2 (08:01→21:22)
[2021-09-05] MEDS: *HR* OxyCODONE Immed Rel 5 MG TABLET PO PRN (08:01)
[2021-09-05] MEDS: Iron Sucrose Complex 250 MG in 0.9 % Sodium Chloride 250 ML IVPB SCH (11:30)
[2021-09-05 11:31] LABS: Basophils % 0.4 %; Eosinophils # 0.2 K/mcL (0.0-0.6); Eosinophils % 2.7 %; Hematocrit 28.8 % (35.3-44.9); Hemoglobin 8.9 g/dL (11.5-15.4); Immature Granulocytes % 4.3 % (0-4); Lymphocytes # 0.7 K/mcL (0.6-4.6); Lymphocytes % 8.5 %; Mean Corpuscular HGB Conc 30.9 g/dL (31.6-35.5); Mean Corpuscular Hemoglobin 25.7 pg (28.0-33.3); Mean Corpuscular Volume 83.2 fL (83.0-100.0); Mean Platelet Volume 10.5 fL (9.4-12.4); Monocytes # 0.5 K/mcL (0.0-1.3); Monocytes % 6.2 %; Neutrophils # 6.6 K/mcL (1.6-8.9); Platelet Count 388 K/mcL (140-400); Red Blood Count 3.46 M/mcL (3.82-4.97); Red Cell Distribution Width 14.6 % (11.5-14.5); Segmented Neutrophils % 77.9 %; White Blood Count 8.5 K/mcL (4.3-11.1)
[2021-09-05 11:49] LABS: BUN/Creatinine Ratio 4 (6-26); Blood Urea Nitrogen 3 mg/dL (6-20); Calcium 8.5 mg/dL (8.6-10.3); Carbon Dioxide 24 mEq/L (23-29); Chloride 106 mEq/L (98-107); Glucose 150 mg/dL (70-105); Osmolality,Calculated 281 (280-300); Potassium 3.8 mEq/L (3.5-5.1); Sodium 136 mEq/L (136-145); eGFR For African Americans > 60 (> 60); eGFR For Non-African Americans > 60 (> 60)
[2021-09-05] MEDS: Acetaminophen 325 MG TABLET PO PRN ×2 (16:26→23:35)
[2021-09-05] MEDS: Ondansetron 4 MG/2 ML VIAL IVP PRN (23:12)
[2021-09-06] MEDS: *HR* Enoxaparin 40 MG/0.4 ML SYRINGE SQ SCH (05:54)
[2021-09-06] MEDS: Piperacillin/Tazobactam 3.375 GM in 0.9 % Sodium Chloride Mini Bag 100 ML IVPB SCH ×3 (08:02→23:12)
[2021-09-06] MEDS: Lactobacillus 1 EACH CAP.SPRINK PO SCH ×2 (08:03→21:38)
[2021-09-06] MEDS: Acetaminophen 325 MG TABLET PO PRN (08:03)
[2021-09-06] MEDS: Ondansetron 4 MG/2 ML VIAL IVP PRN ×2 (08:08→21:48)
[2021-09-06] MEDS ORDERED: Iopamidol - 370 500 ML MLS IVP ONE (08:21)
[2021-09-06] MEDS: Vancomycin 1,500 MG/265 ML IV.SOLN IVPB SCH ×2 (08:59→21:38)
[2021-09-06 09:20] LABS: Basophils % 0.2 %; Eosinophils # 0.1 K/mcL (0.0-0.6); Eosinophils % 1.2 %; Hematocrit 29.3 % (35.3-44.9); Hemoglobin 9.3 g/dL (11.5-15.4); Immature Granulocytes % 2.8 % (0-4); Lymphocytes # 0.4 K/mcL (0.6-4.6); Lymphocytes % 5.8 %; Mean Corpuscular HGB Conc 31.7 g/dL (31.6-35.5); Mean Corpuscular Hemoglobin 26.1 pg (28.0-33.3); Mean Corpuscular Volume 82.1 fL (83.0-100.0); Mean Platelet Volume 9.9 fL (9.4-12.4); Monocytes # 0.6 K/mcL (0.0-1.3); Monocytes % 9.2 %; Neutrophils # 4.8 K/mcL (1.6-8.9); Platelet Count 395 K/mcL (140-400); Red Blood Count 3.57 M/mcL (3.82-4.97); Red Cell Distribution Width 14.8 % (11.5-14.5); Segmented Neutrophils % 80.8 %
[2021-09-06 09:38] LABS: BUN/Creatinine Ratio 4 (6-26); Blood Urea Nitrogen 4 mg/dL (6-20); Calcium 8.6 mg/dL (8.6-10.3); Carbon Dioxide 25 mEq/L (23-29); Chloride 101 mEq/L (98-107); Glucose 132 mg/dL (70-105); Osmolality,Calculated 277 (280-300); Potassium 3.2 mEq/L (3.5-5.1); Sodium 134 mEq/L (136-145); eGFR For African Americans > 60 (> 60); eGFR For Non-African Americans > 60 (> 60)
[2021-09-06] MEDS: Insulin LISPRO 300 UNITS/3 ML VIAL SUBQ SCH ×2 (11:40→18:00)
[2021-09-06] MEDS: *HR* HYDROcodone/Acet 5/325 mg TABLET PO PRN ×2 (13:14→21:48)
[2021-09-06 14:59] LABS: Adenovirus Not Detected (Not Detect); Bordetella Pertussis Not Detected (Not Detect); Chlamydophila pneumoniae Not Detected (Not Detect); Coronavirus 229E Not Detected (Not Detect); Coronavirus HKU1 Not Detected (Not Detect); Coronavirus NL63 Not Detected (Not Detect); Coronavirus OC43 Not Detected (Not Detect); Human Metapneumovirus Not Detected (Not Detect); Human Rhinovirus/Enterovirus Not Detected (Not Detect); Influenza A Subtype 2009 H1 Not Detected (Not Detect); Influenza B Not Detected (Not Detect); Mycoplasma pneumoniae Not Detected (Not Detect); Parainfluenza Virus 1 Not Detected (Not Detect); Parainfluenza Virus 2 Not Detected (Not Detect); Parainfluenza Virus 3 Not Detected (Not Detect); Parainfluenza Virus 4 Not Detected (Not Detect); Respiratory Syncytial Virus Not Detected (Not Detect)
[2021-09-06 15:02] LABS: SARS-CoV-2 DETECTED (Not Detect)
[2021-09-06] MEDS: Menthol 1 EACH LOZENGE PO PRN (18:15)
[2021-09-07] MEDS: *HR* Enoxaparin 40 MG/0.4 ML SYRINGE SQ SCH (04:37)
[2021-09-07] MEDS: *HR* HYDROcodone/Acet 5/325 mg TABLET PO PRN (04:37)
[2021-09-07 05:46] LABS: Basophils % 0.6 %; Eosinophils % 0.6 %; Hematocrit 30.3 % (35.3-44.9); Hemoglobin 9.4 g/dL (11.5-15.4); Lymphocytes # 0.6 K/mcL (0.6-4.6); Lymphocytes % 16.7 %; Mean Corpuscular Hemoglobin 25.8 pg (28.0-33.3); Mean Platelet Volume 9.9 fL (9.4-12.4); Monocytes # 0.5 K/mcL (0.0-1.3); Neutrophils # 2.4 K/mcL (1.6-8.9); Platelet Count 370 K/mcL (140-400); Red Blood Count 3.65 M/mcL (3.82-4.97); Red Cell Distribution Width 15.1 % (11.5-14.5); Segmented Neutrophils % 67.1 %; White Blood Count 3.5 K/mcL (4.3-11.1)
[2021-09-07 06:03] LABS: BUN/Creatinine Ratio 5 (6-26); Blood Urea Nitrogen 5 mg/dL (6-20); Calcium 8.6 mg/dL (8.6-10.3); Carbon Dioxide 25 mEq/L (23-29); Chloride 104 mEq/L (98-107); Glucose 101 mg/dL (70-105); Osmolality,Calculated 283 (280-300); Potassium 3.5 mEq/L (3.5-5.1); Sodium 138 mEq/L (136-145); eGFR For African Americans > 60 (> 60); eGFR For Non-African Americans > 60 (> 60)
[2021-09-07] MEDS: Insulin LISPRO 300 UNITS/3 ML VIAL SUBQ SCH ×3 (07:27→16:46)
[2021-09-07] MEDS: Lactobacillus 1 EACH CAP.SPRINK PO SCH ×2 (08:27→19:38)
[2021-09-07] MEDS: Piperacillin/Tazobactam 3.375 GM in 0.9 % Sodium Chloride Mini Bag 100 ML IVPB SCH ×2 (08:28→15:22)
[2021-09-07] MEDS ORDERED: Vancomycin 1,250 MG/262.5 ML IV.SOLN IVPB SCH (10:00)
[2021-09-07] MEDS ORDERED: Benzonatate 100 MG CAPSULE PO PRN (10:49)
[2021-09-07] MEDS ORDERED: Ipratropium 1 PUFF INHALER IH SCH (12:00)
[2021-09-07] MEDS ORDERED: Albuterol 2.5 MG/3 ML NEBULIZER IH SCH (12:00)
[2021-09-07 12:08] LABS: Alanine Aminotransferase 14 Units/L (7-52); Albumin 2.9 g/dL (3.5-5.7); Albumin/Globulin Ratio 0.7 (1.1-2.2); Alkaline Phosphatase 35 Units/L (34-104); Aspartate Amino Transferase 33 Units/L (13-39); Bilirubin,Indirect 0.2 mg/dL (0.0-1.0); Bilirubin,Total 0.2 mg/dL (0.3-1.0); Globulin 4.1 g/dL (2.4-3.5); Troponin I < 0.03 ng/mL (< 0.04)
[2021-09-07] MEDS: Potassium Chloride Elixir 20 MEQ/15 ML UDC PO SCH (15:23)
[2021-09-07] MEDS ORDERED: Ipratropium/Albuterol Neb 3 ML IH SCH (16:00)
[2021-09-07] MEDS: Ondansetron 4 MG/2 ML VIAL IVP PRN (16:44)
[2021-09-07] MEDS: *HR* OxyCODONE Immed Rel 5 MG TABLET PO PRN (18:50)
[2021-09-08] MEDS: Piperacillin/Tazobactam 3.375 GM in 0.9 % Sodium Chloride Mini Bag 100 ML IVPB SCH ×3 (00:10→16:07)
[2021-09-08 04:41] LABS: Basophils % 0.3 %; Eosinophils # 0.1 K/mcL (0.0-0.6); Eosinophils % 1.7 %; Hematocrit 32.5 % (35.3-44.9); Hemoglobin 9.8 g/dL (11.5-15.4); Lymphocytes # 0.9 K/mcL (0.6-4.6); Lymphocytes % 25.2 %; Mean Corpuscular HGB Conc 30.2 g/dL (31.6-35.5); Mean Corpuscular Hemoglobin 25.3 pg (28.0-33.3); Mean Platelet Volume 10.3 fL (9.4-12.4); Monocytes # 0.4 K/mcL (0.0-1.3); Monocytes % 12.2 %; Neutrophils # 2.1 K/mcL (1.6-8.9); Platelet Count 390 K/mcL (140-400); Red Blood Count 3.87 M/mcL (3.82-4.97); Red Cell Distribution Width 15.3 % (11.5-14.5); Segmented Neutrophils % 58.6 %; White Blood Count 3.5 K/mcL (4.3-11.1)
[2021-09-08 05:06] LABS: BUN/Creatinine Ratio 6 (6-26); Blood Urea Nitrogen 7 mg/dL (6-20); Calcium 8.7 mg/dL (8.6-10.3); Carbon Dioxide 26 mEq/L (23-29); Chloride 104 mEq/L (98-107); Glucose 125 mg/dL (70-105); Osmolality,Calculated 285 (280-300); Potassium 3.6 mEq/L (3.5-5.1); Sodium 138 mEq/L (136-145); eGFR For African Americans > 60 (> 60); eGFR For Non-African Americans 53 (> 60)
[2021-09-08] MEDS: *HR* Enoxaparin 40 MG/0.4 ML SYRINGE SQ SCH ×2 (05:32→17:58)
[2021-09-08] MEDS: Insulin LISPRO 300 UNITS/3 ML VIAL SUBQ SCH ×3 (07:09→16:52)
[2021-09-08] MEDS: Potassium Chloride Elixir 20 MEQ/15 ML UDC PO SCH (08:29)
[2021-09-08] MEDS: Lactobacillus 1 EACH CAP.SPRINK PO SCH ×2 (08:29→20:22)
[2021-09-08] MEDS: Ondansetron 4 MG/2 ML VIAL IVP PRN (09:26)
[2021-09-08] MEDS: Menthol 1 EACH LOZENGE PO PRN (09:26)
[2021-09-08] MEDS ORDERED: 0.9 % Sodium Chloride 1,000 ML IVC ONE (11:55)
[2021-09-08] MEDS: 0.9 % Sodium Chloride 1,000 ML IVC SCH ×2 (14:20→20:33)
[2021-09-08 14:31] LABS: Sodium, Urine 60.3 mEq/L
[2021-09-08] MEDS: *HR* OxyCODONE Immed Rel 5 MG TABLET PO PRN (20:33)
[2021-09-09] MEDS: Piperacillin/Tazobactam 3.375 GM in 0.9 % Sodium Chloride Mini Bag 100 ML IVPB SCH ×2 (00:50→08:57)
[2021-09-09] MEDS: *HR* Enoxaparin 40 MG/0.4 ML SYRINGE SQ SCH (06:25)
[2021-09-09] MEDS: 0.9 % Sodium Chloride 1,000 ML IVC SCH ×2 (06:25→13:10)
[2021-09-09 06:52] LABS: Basophils % 0.3 %; Eosinophils # 0.1 K/mcL (0.0-0.6); Eosinophils % 2.4 %; Hematocrit 35.1 % (35.3-44.9); Hemoglobin 10.5 g/dL (11.5-15.4); Immature Granulocytes % 1.4 % (0-4); Lymphocytes # 1.2 K/mcL (0.6-4.6); Lymphocytes % 40.2 %; Mean Corpuscular HGB Conc 29.9 g/dL (31.6-35.5); Mean Corpuscular Hemoglobin 25.6 pg (28.0-33.3); Mean Corpuscular Volume 85.6 fL (83.0-100.0); Mean Platelet Volume 10.6 fL (9.4-12.4); Monocytes # 0.3 K/mcL (0.0-1.3); Monocytes % 10.1 %; Neutrophils # 1.4 K/mcL (1.6-8.9); Platelet Count 379 K/mcL (140-400); Red Cell Distribution Width 15.2 % (11.5-14.5); Segmented Neutrophils % 45.6 %
[2021-09-09 07:28] LABS: BUN/Creatinine Ratio 7 (6-26); Blood Urea Nitrogen 8 mg/dL (6-20); Calcium 8.6 mg/dL (8.6-10.3); Carbon Dioxide 22 mEq/L (23-29); Chloride 107 mEq/L (98-107); Glucose 114 mg/dL (70-105); Osmolality,Calculated 285 (280-300); Potassium 4.4 mEq/L (3.5-5.1); Sodium 138 mEq/L (136-145); eGFR For African Americans > 60 (> 60); eGFR For Non-African Americans 59 (> 60)
[2021-09-09] MEDS: Insulin LISPRO 300 UNITS/3 ML VIAL SUBQ SCH ×2 (07:59→12:32)
[2021-09-09] MEDS: Lactobacillus 1 EACH CAP.SPRINK PO SCH (08:56)
[2021-09-09] MEDS: Potassium Chloride Elixir 20 MEQ/15 ML UDC PO SCH (08:56)
[2021-09-09] MEDS: Ondansetron 4 MG/2 ML VIAL IVP PRN (09:04)
[2021-09-09 11:53] VITALS: BP 131/87; PULSE 65; TEMP 98.2; O2SAT 97
== END 2021-09-09 16:50 | disposition home health service (06) | DRG 720 ==
LOC: 3ANU 17:17 → EMEROOARM 17:17 → SUATTDRO 21:59 → 3ANU 22:38
PROVIDERS: ADMIT Internal Medicine; ATTEND Family Medicine
PROC: IRDRAIN (~2021-09-01)